=== PATIENT | female | born 1935 | race Caucasian/White ===

== ENCOUNTER 2019-03-10 17:48 | Emergency (ER) | payer MEDICARE, OTHER ==
[~2019-03-10] VITALS: Ht 167.6 cm; Wt 61.7 kg
--- NOTE | 2019-03-10 19:58 | PHYS DOC ---
Past Medical History Past Medical History: Other Additional Past Medical Histor: prolapsed uterus (KATHI OLIVER APRN) Past Surgical History: Other Additional Past Surgical Histo: thyroidectomy (KATHI OLIVER APRN) Alcohol Use: None Drug Use: None (KATHI OLIVER APRN) Adult General Chief Complaint Chief Complaint: VAGINAL BLEEDING HPI HPI Patient is a 83 year old [female] who presents with [3 day history of vaginal bleeding. Patient reports she has bleeding once or twice a day, has not had any discomfort. States she has noticed something different with her vagina and a firm area for the past month or two. Reports she thinks the firm area was growing but thinks it stopped. Denies fever, denies dysuria, denies nausea, vomiting, Denies recent weight loss. States she has had a history of a prolaped uterus many years ago, but never had it evaluated and has never had any issues since that time. Reports she was mostly concerned over the bleeding, denies blood clots, denies dizziness. ] (KATHI OLIVER APRN) Review of Systems Review of Systems Constitutional: Denies fever or chills [] Eyes: Denies change in visual acuity, redness, or eye pain [] HENT: Denies nasal congestion or sore throat [] Respiratory: Denies cough or shortness of breath [] Cardiovascular: No additional information not addressed in HPI [] GI: Denies abdominal pain, nausea, vomiting, bloody stools or diarrhea, does report vaginal bleeding [] : Denies dysuria or hematuria [] Musculoskeletal: Denies back pain or joint pain [] Integument: Denies rash or skin lesions [] Neurologic: Denies headache, focal weakness or sensory changes [] Endocrine: Denies polyuria or polydipsia [] All other systems were reviewed and found to be within normal limits, except as documented in this note. (KATHI OLIVER APRN) Current Medications Current Medications Current Medications Medications (Trade) Dose Ordered Sig/Leo Start Time Stop Time Status Last Admin Dose Admin Info (CONTRAST GIVEN -- Rx MONITORING) 1 each PRN DAILY PRN 03/10/19 20:30 03/10/19 22:31 DC Iohexol (Omnipaque 300 Mg/ml) 100 ml 1X ONCE 03/10/19 20:30 03/10/19 20:31 DC (DICK GRIGSBY DO) Allergies Allergies Allergies Coded Allergies Type Severity Reaction Last Updated Verified No Known Drug Allergies 03/10/19 No (DICK GRIGSBY DO) Physical Exam Physical Exam Constitutional: Well developed, well nourished, no acute distress, non-toxic appearance. [] HENT: Normocephalic, atraumatic, bilateral external ears normal, oropharynx moist, no oral exudates, nose normal. [] Eyes: PERRLA, EOMI, conjunctiva normal, no discharge. [] Neck: Normal range of motion, no tenderness, supple, no stridor. [] Cardiovascular:Heart rate regular rhythm, no murmur [] Lungs & Thorax: Bilateral breath sounds clear to auscultation [] Abdomen: Bowel sounds normal, soft, no tenderness, no masses, no pulsatile masses. [] Skin: Warm, dry, no erythema, no rash. [] Back: No tenderness, no CVA tenderness. [] Extremities: No tenderness, no cyanosis, no clubbing, ROM intact, no edema. [] Neurologic: Alert and oriented X 3, normal motor function, normal sensory function, no focal deficits noted. [] Psychologic: Affect normal, judgement normal, mood normal. [] : Pelvic exam, imaging assistant with RN in room. Noted small amount of whitish vaginal fluid in vaginal canal, no lesion noted to cervix, no lesions noted to vaginal canal. At distal, posterior labia, noted approximately 1 cm thick, 2 cm diameter growth anterior to rectum, growth extends superiorly approximately 2.5 cm into posterior vaginal canal. Lesion noted medially, with minimal erythema, no active bleeding noted at this time. (KATHI OLIVER APRN) Current Patient Data Vital Signs Vital Signs Date Time Temp Pulse Resp B/P (MAP) Pulse Ox O2 Delivery O2 Flow Rate FiO2 03/10/19 22:10 75 22 147/73 (97) 97 Room Air 03/10/19 17:48 98.1 98.1 (DICK GRIGSBY DO) Lab Values Laboratory Tests Test 03/10/19 19:15 03/10/19 19:35 Urine Collection Type Unknown Urine Color Yellow Urine Clarity Clear Urine pH 6.0 Urine Specific [place] >=1.030 Urine Protein Negative mg/dL (NEG-TRACE) Urine Glucose (UA) Negative mg/dL (NEG) Urine Ketones (Stick) Negative mg/dL (NEG) Urine Blood Negative (NEG) Urine Nitrite Negative (NEG) Urine Bilirubin Negative (NEG) Urine Urobilinogen Dipstick 1.0 mg/dL (0.2 mg/dL) Urine Leukocyte Esterase Moderate (NEG) Urine RBC 0 /HPF (0-2) Urine WBC 5-10 /HPF (0-4) Urine Squamous Epithelial Cells Few /LPF Urine Bacteria Few /HPF (0-FEW) Urine Mucus Mod /LPF White Blood Count 8.5 x10^3/uL (4.0-11.0) Red Blood Count 4.22 x10^6/uL (3.50-5.40) Hemoglobin 12.6 g/dL (12.0-15.5) Hematocrit 36.8 % (36.0-47.0) Mean Corpuscular Volume 87 fL (79-100) Mean Corpuscular Hemoglobin 30 pg (25-35) Mean Corpuscular Hemoglobin Concent 34 g/dL (31-37) Red Cell Distribution Width 14.8 % (11.5-14.5) H Platelet Count 299 x10^3/uL (140-400) Neutrophils (%) (Auto) 74 % (31-73) H Lymphocytes (%) (Auto) 15 % (24-48) L Monocytes (%) (Auto) 9 % (0-9) Eosinophils (%) (Auto) 1 % (0-3) Basophils (%) (Auto) 1 % (0-3) Neutrophils # (Auto) 6.3 x10^3uL (1.8-7.7) Lymphocytes # (Auto) 1.3 x10^3/uL (1.0-4.8) Monocytes # (Auto) 0.7 x10^3/uL (0.0-1.1) Eosinophils # (Auto) 0.1 x10^3/uL (0.0-0.7) Basophils # (Auto) 0.1 x10^3/uL (0.0-0.2) Sodium Level 142 mmol/L (136-145) Potassium Level 4.1 mmol/L (3.5-5.1) Chloride Level 104 mmol/L (98-107) Carbon Dioxide Level 26 mmol/L (21-32) Anion Gap 12 (6-14) Blood Urea Nitrogen 28 mg/dL (7-20) H Creatinine 0.9 mg/dL (0.6-1.0) Estimated GFR (Cockcroft-Gault) 59.9 Glucose Level 118 mg/dL (70-99) H Calcium Level 9.7 mg/dL (8.5-10.1) Laboratory Tests 03/10/19 19:35 Laboratory Tests 03/10/19 19:35 (DICK GRIGSBY DO) Lab Values Laboratory Tests Test 03/10/19 19:15 03/10/19 19:35 Urine Collection Type Unknown Urine Color Yellow Urine Clarity Clear Urine pH 6.0 Urine Specific [place] >=1.030 Urine Protein Negative mg/dL (NEG-TRACE) Urine Glucose (UA) Negative mg/dL (NEG) Urine Ketones (Stick) Negative mg/dL (NEG) Urine Blood Negative (NEG) Urine Nitrite Negative (NEG) Urine Bilirubin Negative (NEG) Urine Urobilinogen Dipstick 1.0 mg/dL (0.2 mg/dL) Urine Leukocyte Esterase Moderate (NEG) Urine RBC 0 /HPF (0-2) Urine WBC 5-10 /HPF (0-4) Urine Squamous Epithelial Cells Few /LPF Urine Bacteria Few /HPF (0-FEW) Urine Mucus Mod /LPF White Blood Count 8.5 x10^3/uL (4.0-11.0) Red Blood Count 4.22 x10^6/uL (3.50-5.40) Hemoglobin 12.6 g/dL (12.0-15.5) Hematocrit 36.8 % (36.0-47.0) Mean Corpuscular Volume 87 fL (79-100) Mean Corpuscular Hemoglobin 30 pg (25-35) Mean Corpuscular Hemoglobin Concent 34 g/dL (31-37) Red Cell Distribution Width 14.8 % (11.5-14.5) H Platelet Count 299 x10^3/uL (140-400) Neutrophils (%) (Auto) 74 % (31-73) H Lymphocytes (%) (Auto) 15 % (24-48) L Monocytes (%) (Auto) 9 % (0-9) Eosinophils (%) (Auto) 1 % (0-3) Basophils (%) (Auto) 1 % (0-3) Neutrophils # (Auto) 6.3 x10^3uL (1.8-7.7) Lymphocytes # (Auto) 1.3 x10^3/uL (1.0-4.8) Monocytes # (Auto) 0.7 x10^3/uL (0.0-1.1) Eosinophils # (Auto) 0.1 x10^3/uL (0.0-0.7) Basophils # (Auto) 0.1 x10^3/uL (0.0-0.2) Sodium Level 142 mmol/L (136-145) Potassium Level 4.1 mmol/L (3.5-5.1) Chloride Level 104 mmol/L (98-107) Carbon Dioxide Level 26 mmol/L (21-32) Anion Gap 12 (6-14) Blood Urea Nitrogen 28 mg/dL (7-20) H Creatinine 0.9 mg/dL (0.6-1.0) Estimated GFR (Cockcroft-Gault) 59.9 Glucose Level 118 mg/dL (70-99) H Calcium Level 9.7 mg/dL (8.5-10.1) Laboratory Tests 03/10/19 19:35 Laboratory Tests 03/10/19 19:35 (KATHI OLIVER APRN) EKG EKG [] (KATHI OLIVER APRN) Radiology/Procedures Radiology/Procedures []. There is degenerative and hypertrophic change at the pubic symphysis which could be palpable. There is a subcutaneous density which is nonspecific at the posterior labia IMPRESSION: 1. Hypertrophic change at the pubic symphysis. 2. Small nonspecific subcutaneous density at the posterior labia measuring 3.2 x 1.5 cm. 3. Normal appendix. 4. Spondylolisthesis at L5-S1 with degenerative change in lumbar spine. 5. Moderate stool in the colon. 6. Dilated renal collecting system of the left kidney or peripelvic renal cysts on the left. 7. Marked arthritis of the hips especially on the right. Electronically signed by: Chi Nava MD (03/10/2019 8:58 PM) [facility] DICTATED and SIGNED BY: CHI NAVA MD DATE: 03/10/192057 (KATHI OLIVER APRN) Course & Med Decision Making Course & Med Decision Making Pertinent Labs and Imaging studies reviewed. (See chart for details) [Discussed findings with patient, with no remarkable lab findings, imaging also identifies the mass we found on exam. Discussed no need for admission, but do recommend follow up with Strategy Consultant for evaluation and probable biopsy Discussed observing for bleeding, use of pads to contain bleeding, and may return to ER if bleeding continues and does not stop Discussed avoiding wiping heavily Discussed increasing fluid intake and stool softeners to reduce constipation noted in stool] (KATHI OLIVER APRN) Dragon Disclaimer Dragon Disclaimer This electronic medical record was generated, in whole or in part, using a voice recognition dictation system. (KATHI OLIVER APRN) Departure Departure Impression: Primary Impression: Labial lesion Additional Impressions: Bleeding Urinary tract infection Disposition: HOME, SELF-CARE Condition: GOOD Referrals: JONATHON KWOK MD (PCP) WYATT FINK MD Patient Instructions: Postmenopausal Bleeding Additional Instructions: As we discussed, her blood work all looks good today. You did not appear to have lost a large amount of blood based on her blood tests As we talked about, he do have a growth on your vagina. He need to follow-up with the practice performance manager to have this evaluated, and determine if they want to do a biopsy on this. Follow-up with Dr. Villanueva whose information is provided in your discharge paperwork. Try to wear a pad to catch any bleeding which may occur, if you have a large amount of bleeding that does not stop, please come back to the emergency room to be evaluated and have the bleeding stopped. Scripts Ciprofloxacin Hcl (CIPRO) 500 Mg Tablet 1 TAB PO BID, #6 TAB Prov: KATHI OLIVER APRN 03/10/19 Attending Signature Attending Signature I have reviewed the PA/WOOD BARKER's note and plan of care. I was available for consultation as needed during the patient's visit in the emergency department. I agree with the clinical impression, plan, and disposition. (DICK GRIGSBY DO) Problem Qualifiers Additional Impressions: Urinary tract infection Urinary tract infection type: acute cystitis Hematuria presence: without hematuria Qualified Codes: N30.00 - Acute cystitis without hematuria KATHI OLIVER APRN Mar 10, 2019 19:58 DICK GRIGSBY DO Mar 12, 2019 20:33
[2019-03-10 20:08] LABS: BASO # 0.1 x10^3/uL (0.0-0.2); BASO % 1 % (0-3); EOS # 0.1 x10^3/uL (0.0-0.7); EOS % 1 % (0-3); HEMATOCRIT 36.8 % (36.0-47.0); HEMOGLOBIN 12.6 g/dL (12.0-15.5); LYMPH # 1.3 x10^3/uL (1.0-4.8); LYMPH % 15 % (24-48); MEAN CORPUSCULAR HEMOGLOBIN 30 pg (25-35); MEAN CORPUSCULAR HGB CONC 34 g/dL (31-37); MEAN CORPUSCULAR VOLUME 87 fL (79-100); MONO # 0.7 x10^3/uL (0.0-1.1); MONO % 9 % (0-9); NEUT # 6.3 x10^3uL (1.8-7.7); NEUT % 74 % (31-73); PLATELET COUNT 299 x10^3/uL (140-400); RED BLOOD COUNT 4.22 x10^6/uL (3.50-5.40); RED CELL DISTRIBUTION WIDTH 14.8 % (11.5-14.5); WHITE BLOOD COUNT 8.5 x10^3/uL (4.0-11.0)
[2019-03-10 20:12] LABS: BILIRUBIN,URINE NEGATIVE (NEG); CLARITY,URINE CLEAR; COLOR,URINE YELLOW; NITRITE,URINE NEGATIVE (NEG); PROTEIN,URINE NEGATIVE (NEG-TRACE)
[2019-03-10 20:23] LABS: BACTERIA,URINE FEW /HPF (0-FEW); RBC,URINE 0 /HPF (0-2); SQUAMOUS EPITHELIAL CELL,UR FEW /LPF
[2019-03-10 20:25] LABS: CALCIUM 9.7 mg/dL (8.5-10.1); CREATININE 0.9 mg/dL (0.6-1.0); GFR 59.9; POTASSIUM 4.1 mmol/L (3.5-5.1)
[2019-03-10] MEDS ORDERED: CONTRAST GIVEN. MC PRN (20:30)
[2019-03-10] MEDS ORDERED: IOHEXOL 300 MG/ML 100ML VIAL. IV ONE (20:30)
--- NOTE | 2019-03-10 21:01 | RAD ---
CT abdomen and pelvis with contrast. HISTORY: Labial mass, vaginal bleeding CT scan the abdomen pelvis was done using 60 mL Omnipaque 300 contrast. Lung bases are clear. There is no effusion. There is scoliosis and degenerative change in the lumbar spine. There is spondylolisthesis at L5-S1. A liver lesion is not identified. There is no calcified gallstone. Spleen and adrenal glands are normal. Pancreas is normal. There are small renal cysts. There is dilated intrarenal collecting system of the left kidney possibly a mild UPJ obstruction or peripelvic renal cysts. The left ureter is nondilated. Bowel pattern is normal. There is increased stool in the colon. Uterus and ovaries are normal. There is no bladder lesion noted. There is marked arthritis in the right hip with moderate arthritis in the left hip. There is loss of the joint space of the right hip. Appendix is normal. There is degenerative and hypertrophic change at the pubic symphysis which could be palpable. There is a subcutaneous density which is nonspecific at the posterior labia IMPRESSION: 1. Hypertrophic change at the pubic symphysis. 2. Small nonspecific subcutaneous density at the posterior labia measuring 3.2 x 1.5 cm. 3. Normal appendix. 4. Spondylolisthesis at L5-S1 with degenerative change in lumbar spine. 5. Moderate stool in the colon. 6. Dilated renal collecting system of the left kidney or peripelvic renal cysts on the left. 7. Marked arthritis of the hips especially on the right. Electronically signed by: Chi Nava MD (03/10/2019 8:58 PM) [facility]
[2019-03-10] MEDS ORDERED: CIPR500T94 PO (21:22)
[2019-03-10 22:10] VITALS: BP 147/73
== END 2019-03-10 22:15 | disposition home or self-care (01) ==
LOC: ER 17:48
DX: N30.00 Acute cystitis without hematuria (principal); N90.89 Other specified noninflammatory disorders of vulva and perineum; N93.9 Abnormal uterine and vaginal bleeding, unspecified; Z98.890 Other specified postprocedural states
CPT/HCPCS: 36415; 74177; 80048; 81001; 85025; 87086; 99285-25

== ENCOUNTER 2019-06-17 09:10 | Outpatient (CLI) | payer MEDICARE, OTHER ==
[~2019-06-17] VITALS: Ht 170.2 cm; Wt 60.3 kg
[2019-06-17 09:07] VITALS: BP 153/70
[~2019-06-17 09:10] MED LIST: CIPR500T94 PO; OXYC1TAB15 PO
[2019-06-17] MEDS ORDERED: LIDOCAINE 1%/EPI 1:100,000 20 ML VIAL. ONE (09:42)
[2019-06-17] MEDS ORDERED: fentaNYL PF VIAL 100 MCG/2 ML VIAL ONE (10:08)
[2019-06-17] MEDS ORDERED: MIDAZOLAM HCL/PF 2 MG/2 ML VIAL. ONE (10:08)
[2019-06-17] MEDS ORDERED: LIDOCAINE 1%/EPI 1:100,000 20 ML VIAL. SQ ONE (10:45)
[2019-06-17] MEDS ORDERED: MIDAZOLAM HCL/PF 2 MG/2 ML VIAL. IV ONE (10:45)
[2019-06-17] MEDS ORDERED: fentaNYL PF VIAL 100 MCG/2 ML VIAL IV ONE (10:45)
[2019-06-17 10:55] VITALS: BP 119/49
[2019-06-17 11:00] VITALS: BP 122/52
[2019-06-17 11:15] VITALS: BP 105/49
[2019-06-17 11:30] VITALS: BP 105/51
[2019-06-17 11:50] VITALS: BP 121/62
--- NOTE | 2019-06-17 12:10 | NUR ---
pt discharged to home with family. PIV thang'd. Pt ambulated and tolerated PO.
--- NOTE | 2019-06-17 14:23 | RAD ---
Procedure: Ultrasound and fluoroscopically guided placement of right internal jugular power port.. 06/17/2019 12:18 PM Clinical Indication: Chemotherapy Sedation: Conscious sedation was administered for 50 minutes. The patient was monitored by a qualified independent observer throughout the time of sedation. Please refer to the medical record for exact doses of medications utilized to achieve moderate sedation. Fluoroscopy time: 1.4 minutes Dose area product: 1 Gycm2 Consent: The procedure was explained in its entirety to the patient or the patients designated automotive leasing sales representative by a member of the treatment team, including a discussion of the risks, benefits and commonly accepted alternatives to the procedure, as well as the expected consequences of no therapy whatsoever. Discussion of the risks included, but was not limited to, those that are most frequent and those that are rare but possibly severe or life-threatening, as well as the possibility of unforeseen complications. Technique and Findings: All elements of maximal sterile barrier technique including the use of a cap, mask, sterile gown, sterile gloves, large sterile sheet, appropriate hand hygiene, and 2% chlorhexidine for cutaneous antisepsis (or acceptable alternative antiseptic per current guidelines) were followed for this procedure. Following informed consent, and a timeout procedure, the patient was prepped and draped in the usual sterile fashion. Ultrasound interrogation of the right neck revealed patency and compressibility of the right internal jugular vein. A 21-gauge micropuncture was then used to gain access to this vein under ultrasound guidance. A hard copy ultrasound image was recorded. The needle was exchanged over a wire for a sheath. A 1 inch incision was made several centimeters inferior to the venotomy site. A catheter was tunneled from this site dermatotomy site in the neck. Catheter was advanced through peel-away sheath such that its tip was in the proximal right atrium with the patient supine. The catheter was trimmed to length and connected to the port reservoir. The port was found to flush and aspirate normally. The wound was closed in layers using 4-0 Vicryl suture. Sterile dressings were applied. Impression: Successful ultrasound and fluoroscopically guided placement of a right internal jugular PowerPort
== END 2019-06-17 12:11 | disposition home or self-care (01) ==
LOC: INTRAD 09:10
PROVIDERS: ATTEND Internal Medicine Hematology & Oncology
DX: Z45.2 Encounter for adjustment and management of vascular access device (principal); C51.9 Malignant neoplasm of vulva, unspecified
CPT/HCPCS: 36561; 76937; 77001; 99152; 99153; C1751; C1892; C1894; J0690; J2250; J3010; J3490

== ENCOUNTER → 2019-09-10 | Outpatient (CLI) | payer MEDICARE, OTHER ==
[~2019-09-10] MED LIST changes: +FERR-36 PO; +HYDR-2761 PO
--- NOTE | 2019-09-10 12:26 | RAD ---
AP VIEW OF THE PELVIS AND TWO-VIEW STUDY LEFT HIP Clinical indications: Left hip pain after recent fall. FINDINGS: There is a subcapital left femoral neck fracture with mild superior displacement of the neck with respect to the head. No dislocation is evident. No lytic process is evident. There is severe degenerative osteoarthritis with loss of joint space of the right hip joint. No diastases of the symphysis pubis or either SI joint is seen. IMPRESSION: Acute subcapital left femoral neck fracture. Note-this finding was discussed with Dr. Timmy Desai at 12:23 PM on September 10, 2019. 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 Electronically signed by: Rafa Alfaro MD (09/10/2019 12:24 PM) [facility]
== END | disposition home or self-care (01) ==
LOC: RAD 11:35
PROVIDERS: ATTEND Radiology Radiation Oncology
DX: S72.012A Unspecified intracapsular fracture of left femur, initial encounter for closed fracture (principal); M16.11 Unilateral primary osteoarthritis, right hip; W19.XXXA Unspecified fall, initial encounter; Y93.89 Activity, other specified; Y92.89 Other specified places as the place of occurrence of the external cause; Y99.8 Other external cause status
CPT/HCPCS: 73502

== ENCOUNTER → 2019-12-16 | Outpatient (CLI) | payer MEDICARE, OTHER ==
[2019-09-18 11:00] VITALS: BP 119/55
[~2019-12-16] MED LIST changes: +CHOL500051 PO; +IOHEXOL 240 MG/ML 50ML VIAL. PO ONE; +IOHEXOL 300 MG/ML 100ML VIAL. IV ONE
[2019-12-16 09:12] LABS: CREATININE 0.8 mg/dL (0.6-1.0); GFR 68.5
--- NOTE | 2019-12-16 11:24 | RAD ---
PQRS Compliance Statement: One or more of the following individualized dose reduction techniques were utilized for this examination: 1. Automated exposure control 2. Adjustment of the mA and/or kV according to patient size 3. Use of iterative reconstruction technique CT CHEST ABD PELVIS W/CONTRAST Clinical Indication: Vulvar cancer. Comparison: FDG PET/CT skull base to upper thighs, May 23, 2019. Technique: Helical CT imaging of the chest, abdomen and pelvis is performed after 75 cc of Omnipaque 300 IV contrast. Oral contrast also administered. Findings: Right Port-A-Cath, tip in right atrium. Mildly enlarged mediastinal lymph nodes are stable. Vessels are stable. Coronary artery disease. Mitral annular calcification. Cardiac size normal, no pericardial effusion. Small hiatal hernia. The central airways are patent. There is a new soft tissue density nodule in the medial right lower lobe measuring 2.1 x 1.6 cm. No other pulmonary nodule is seen. There is no pleural abnormality. The liver, gallbladder, spleen, pancreas, adrenal glands, and abdominal aorta caliber are normal. Kidneys enhance symmetrically, no hydronephrosis is seen. Stomach unremarkable. Oral contrast reaches the colon indicating there is no small bowel obstruction. There is moderate colon stool volume. No colon wall thickening is identified. Subcentimeter retroperitoneal lymph nodes. No adenopathy. There is beam hardening artifact from left hip arthroplasty limiting evaluation of the pelvis. Urinary bladder is decompressed. Uterus appears stable. There is no pelvic free fluid. The lower pelvis and vulvar region is not imaged. Bilateral inguinal adenopathy is no longer seen. Bilateral L5 spondylolysis. Grade 1 anterolisthesis of L5 on S1. Degenerative spondylosis of the lumbar spine. There is right convexity thoracolumbar scoliosis. There is severe arthropathy of the right hip. Diffuse demineralization. IMPRESSION: 1. The lower pelvis and vulvar region is not imaged. 2. Bilateral inguinal adenopathy has resolved. 3. There is a new soft tissue density nodule in the right lower lobe suspicious for metastasis. Consider further evaluation with FDG PET/CT. 4. Mildly enlarged mediastinal lymph nodes are stable. These lymph nodes had low level FDG uptake equivalent to blood pool on prior study and may be reactive or incidental. Electronically signed by: Samuel Acosta MD (12/16/2019 11:21 AM) [id number]
== END | disposition home or self-care (01) ==
LOC: CT 09:38
PROVIDERS: ATTEND Internal Medicine Hematology & Oncology
DX: C51.9 Malignant neoplasm of vulva, unspecified (principal); I25.10 Atherosclerotic heart disease of native coronary artery without angina pectoris; K44.9 Diaphragmatic hernia without obstruction or gangrene; I34.8 Other nonrheumatic mitral valve disorders; R59.0 Localized enlarged lymph nodes; M47.816 Spondylosis without myelopathy or radiculopathy, lumbar region; M43.17 Spondylolisthesis, lumbosacral region; M16.11 Unilateral primary osteoarthritis, right hip
CPT/HCPCS: 36415; 71260; 74177; 82565; Q9966; Q9967

== ENCOUNTER → 2019-12-19 | Outpatient (CLI) | payer MEDICARE, OTHER ==
[2019-09-18 11:00] VITALS: BP 119/55
[~2019-12-19] MED LIST changes: -IOHEXOL 240 MG/ML 50ML VIAL. PO ONE; -IOHEXOL 300 MG/ML 100ML VIAL. IV ONE
--- NOTE | 2019-12-19 17:31 | RAD ---
RESULT: EXAMINATION: PET W CT SKULL TO MIDTHIGH HISTORY: Vulvar carcinoma restaging. Right lung lesion is new. COMPARISON/CORRELATION: 05/23/2019 PET/CT exam, 12/16/2019 CT chest abdomen pelvis with contrast exam FINDINGS: Net dose 14.7 mCi F-18 FDG was administered intravenously for purposes of PET/CT exam. Blood glucose level at the time of radiotracer administration was 120 mg/dL. Imaging was performed from the skull base to the proximal thighs. Hepatic reference uptake is SUV max of 2.1 . A right medial basilar costophrenic sulcus is 1.9 cm in diameter nodule has SUV max of 5. No abnormal uptake of radiotracer involving the thoracic lymph nodes. No suspicious infiltrates since the recent prior CT exam. Incidental note is made of retained contrast in distal colon. No radiopaque collecting system calculi. Uptake of radiotracer involving the abdomen is unremarkable. On the right lower pelvic sidewall, a 2.2 cm x 1.4 cm x 3 cm in longitudinal enlarged pelvic lymph node with SUV max of 6.6. There is no abnormal radiotracer uptake involving the pelvis or perineum otherwise seen. Severe right hip joint degenerative remodeling is present. Left hip joint prosthesis is present. IMPRESSION: Right medial basilar mass with moderately intense uptake compatible with active metastatic disease since the prior PET/CT exam of 05/23/2019. Intense uptake involving a new right pelvic sidewall lymph node compatible with active lymphadenopathy since the prior PET/CT exam of 05/23/2019. PQRS Compliance Statement: One or more of the following individualized dose reduction techniques were utilized for this examination: 1. Automated exposure control 2. Adjustment of the mA and/or kV according to patient size 3. Use of iterative reconstruction technique Electronically signed by: Wally Martin MD (12/19/2019 5:28 PM) [facility]
== END ==
LOC: PETSC 13:53
PROVIDERS: ATTEND Internal Medicine Hematology & Oncology
DX: C51.9 Malignant neoplasm of vulva, unspecified (principal); R91.1 Solitary pulmonary nodule; M16.11 Unilateral primary osteoarthritis, right hip
CPT/HCPCS: 78815; A9552

== ENCOUNTER → 2020-03-09 | Outpatient (CLI) | payer MEDICARE, OTHER ==
[2020-03-05 09:51] VITALS: BP 124/62
[2020-03-09 10:13] LABS: BASO % 1 % (0-3); EOS % 1 % (0-3); HEMATOCRIT 29.8 % (36.0-47.0); HEMOGLOBIN 10.3 g/dL (12.0-15.5); LYMPH # 0.4 x10^3/uL (1.0-4.8); LYMPH % 25 % (24-48); MEAN CORPUSCULAR HEMOGLOBIN 32 pg (25-35); MEAN CORPUSCULAR HGB CONC 35 g/dL (31-37); MEAN CORPUSCULAR VOLUME 92 fL (79-100); MONO # 0.2 x10^3/uL (0.0-1.1); MONO % 11 % (0-9); NEUT # 0.9 x10^3/uL (1.8-7.7); NEUT % 63 % (31-73); PLATELET COUNT 170 x10^3/uL (140-400); RED BLOOD COUNT 3.22 x10^6/uL (3.50-5.40)
[2020-03-09 10:15] LABS: CALCIUM 8.6 mg/dL (8.5-10.1); CREATININE 0.8 mg/dL (0.6-1.0); GFR 68.5; POTASSIUM 4.2 mmol/L (3.5-5.1)
[2020-03-09 10:24] LABS: ALBUMIN 3.3 g/dL (3.4-5.0); DIRECT BILIRUBIN 0.2 mg/dL (0.0-0.2); TOTAL BILIRUBIN 0.6 mg/dL (0.2-1.0); TOTAL PROTEIN 6.5 g/dL (6.4-8.2); WHITE BLOOD COUNT 1.4 x10^3/uL (4.0-11.0)
== END | disposition home or self-care (01) ==
LOC: SPEC 09:40
PROVIDERS: ATTEND Physician Assistant
DX: C51.9 Malignant neoplasm of vulva, unspecified (principal)
CPT/HCPCS: 36415; 80048; 80076; 83615; 85025

== ENCOUNTER → 2020-03-11 | Outpatient (CLI) | payer MEDICARE, OTHER ==
[2020-03-05 09:51] VITALS: BP 124/62
[2020-03-11 08:52] LABS: BASO % 0 % (0-3); EOS % 0 % (0-3); HEMATOCRIT 30.5 % (36.0-47.0); HEMOGLOBIN 10.5 g/dL (12.0-15.5); LYMPH # 0.6 x10^3/uL (1.0-4.8); LYMPH % 9 % (24-48); MEAN CORPUSCULAR HEMOGLOBIN 32 pg (25-35); MEAN CORPUSCULAR HGB CONC 34 g/dL (31-37); MEAN CORPUSCULAR VOLUME 94 fL (79-100); MONO # 0.4 x10^3/uL (0.0-1.1); MONO % 6 % (0-9); NEUT # 5.6 x10^3/uL (1.8-7.7); NEUT % 84 % (31-73); PLATELET COUNT 185 x10^3/uL (140-400); RED BLOOD COUNT 3.24 x10^6/uL (3.50-5.40); RED CELL DISTRIBUTION WIDTH 19.8 % (11.5-14.5); WHITE BLOOD COUNT 6.6 x10^3/uL (4.0-11.0)
== END | disposition home or self-care (01) ==
LOC: ONCLAB 08:12
PROVIDERS: ATTEND Physician Assistant
DX: C51.9 Malignant neoplasm of vulva, unspecified (principal)
CPT/HCPCS: 36415; 85025

== ENCOUNTER → 2020-03-15 | Outpatient (CLI) | payer MEDICARE, OTHER ==
[2020-03-05 09:51] VITALS: BP 124/62
--- NOTE | 2020-03-15 10:40 | RAD ---
Right lower extremity venous doppler ultrasound History: Right leg pain Comparison: None Findings: Multiple grayscale, color, and duplex spectral analysis sonographic images were acquired of the right lower extremity veins to evaluate for the presence of DVT. There is nonocclusive abnormal echogenicity in the right popliteal vein, also occlusive echogenicity in one of the paired posterior tibial veins. Remainder of the interrogated right lower extremity veins are patent with normal phasicity and color-flow. Impression: 1. There is nonocclusive deep venous thrombus in the right popliteal vein, also occlusive thrombus in one of the posterior tibial veins. Findings were also called to voicemail for the nurse at the doctor's office 10:36 AM 03/15/2020. Critical results were relayed by the technologist to the nurse in the ordering doctor's office at conclusion of exam on 03/15/2020. Electronically signed by: Jeff Love MD (03/15/2020 10:37 AM) [id number]
== END | disposition home or self-care (01) ==
LOC: US 10:00
PROVIDERS: ATTEND Physician Assistant
DX: I82.431 Acute embolism and thrombosis of right popliteal vein (principal); C51.9 Malignant neoplasm of vulva, unspecified
CPT/HCPCS: 93971

== ENCOUNTER → 2020-03-15 | Outpatient (CLI) | payer MEDICARE, OTHER ==
[2020-03-05 09:51] VITALS: BP 124/62
[2020-03-15 09:19] LABS: CALCIUM 8.6 mg/dL (8.5-10.1); CREATININE 0.8 mg/dL (0.6-1.0); GFR 68.5; POTASSIUM 4.1 mmol/L (3.5-5.1)
[2020-03-15 09:27] LABS: BASO % 1 % (0-3); EOS % 1 % (0-3); HEMOGLOBIN 10.7 g/dL (12.0-15.5); LYMPH # 0.4 x10^3/uL (1.0-4.8); LYMPH % 37 % (24-48); MEAN CORPUSCULAR HEMOGLOBIN 32 pg (25-35); MEAN CORPUSCULAR HGB CONC 34 g/dL (31-37); MEAN CORPUSCULAR VOLUME 94 fL (79-100); MONO # 0.2 x10^3/uL (0.0-1.1); MONO % 16 % (0-9); NEUT # 0.5 x10^3/uL (1.8-7.7); NEUT % 46 % (31-73); PLATELET COUNT 205 x10^3/uL (140-400); RED CELL DISTRIBUTION WIDTH 20.6 % (11.5-14.5)
[2020-03-15 09:29] LABS: WHITE BLOOD COUNT 1.1 x10^3/uL (4.0-11.0)
[2020-03-15 10:05] LABS: % EOS 1 % (0-5); % LYMPHS 38 % (24-48); % MONOS 19 % (0-10); % SEGS 42 % (35-66); PLT ESTIMATE ADEQUATE (ADEQUATE)
== END | disposition home or self-care (01) ==
LOC: ONCLAB 08:42
PROVIDERS: ATTEND Physician Assistant
DX: C77.4 Secondary and unspecified malignant neoplasm of inguinal and lower limb lymph nodes (principal)
CPT/HCPCS: 36415; 80048; 85007; 85025

== ENCOUNTER → 2020-03-18 | Outpatient (CLI) | payer MEDICARE, OTHER ==
[2020-03-05 09:51] VITALS: BP 124/62
[~2020-03-18] MED LIST changes: +IBUP-1027 PO; +vitamin d PO
[2020-03-18 08:54] LABS: BASO % 1 % (0-3); EOS % 0 % (0-3); HEMATOCRIT 31.2 % (36.0-47.0); HEMOGLOBIN 10.6 g/dL (12.0-15.5); LYMPH # 0.6 x10^3/uL (1.0-4.8); LYMPH % 13 % (24-48); MEAN CORPUSCULAR HEMOGLOBIN 32 pg (25-35); MEAN CORPUSCULAR HGB CONC 34 g/dL (31-37); MEAN CORPUSCULAR VOLUME 96 fL (79-100); MONO # 0.5 x10^3/uL (0.0-1.1); MONO % 12 % (0-9); NEUT # 3.3 x10^3/uL (1.8-7.7); NEUT % 74 % (31-73); PLATELET COUNT 257 x10^3/uL (140-400); RED BLOOD COUNT 3.26 x10^6/uL (3.50-5.40); RED CELL DISTRIBUTION WIDTH 22.6 % (11.5-14.5); WHITE BLOOD COUNT 4.4 x10^3/uL (4.0-11.0)
[2020-03-18 09:07] LABS: CALCIUM 8.8 mg/dL (8.5-10.1); CREATININE 0.9 mg/dL (0.6-1.0); GFR 59.8; POTASSIUM 3.9 mmol/L (3.5-5.1)
== END | disposition home or self-care (01) ==
LOC: ONCLAB 08:35
PROVIDERS: ATTEND Internal Medicine Hematology & Oncology
DX: C51.9 Malignant neoplasm of vulva, unspecified (principal)
CPT/HCPCS: 36415; 80048; 83615; 85025

== ENCOUNTER → 2020-03-25 | Outpatient (CLI) | payer MEDICARE, OTHER ==
[2020-03-05 09:51] VITALS: BP 124/62
[2020-03-25 08:30] LABS: BASO # 0.1 x10^3/uL (0.0-0.2); BASO % 1 % (0-3); EOS % 0 % (0-3); HEMATOCRIT 33.7 % (36.0-47.0); HEMOGLOBIN 11.1 g/dL (12.0-15.5); LYMPH % 9 % (24-48); MEAN CORPUSCULAR HEMOGLOBIN 32 pg (25-35); MEAN CORPUSCULAR HGB CONC 33 g/dL (31-37); MEAN CORPUSCULAR VOLUME 98 fL (79-100); MONO # 0.9 x10^3/uL (0.0-1.1); MONO % 8 % (0-9); NEUT # 10.1 x10^3/uL (1.8-7.7); NEUT % 83 % (31-73); PLATELET COUNT 242 x10^3/uL (140-400); RED BLOOD COUNT 3.43 x10^6/uL (3.50-5.40); RED CELL DISTRIBUTION WIDTH 22.7 % (11.5-14.5); WHITE BLOOD COUNT 12.1 x10^3/uL (4.0-11.0)
[2020-03-25 08:37] LABS: CALCIUM 9.1 mg/dL (8.5-10.1)
== END ==
LOC: ONCLAB 08:06
PROVIDERS: ATTEND Physician Assistant
DX: C51.9 Malignant neoplasm of vulva, unspecified (principal)
CPT/HCPCS: 36415; 80048; 85025

== ENCOUNTER → 2020-04-01 | Outpatient (CLI) | payer MEDICARE, OTHER ==
[2020-03-05 09:51] VITALS: BP 124/62
[2020-04-01 08:44] LABS: BASO % 0 % (0-3); EOS % 0 % (0-3); HEMATOCRIT 29.8 % (36.0-47.0); LYMPH # 0.6 x10^3/uL (1.0-4.8); LYMPH % 5 % (24-48); MEAN CORPUSCULAR HEMOGLOBIN 33 pg (25-35); MEAN CORPUSCULAR HGB CONC 34 g/dL (31-37); MEAN CORPUSCULAR VOLUME 99 fL (79-100); MONO # 0.7 x10^3/uL (0.0-1.1); MONO % 5 % (0-9); NEUT % 90 % (31-73); PLATELET COUNT 203 x10^3/uL (140-400); RED BLOOD COUNT 3.02 x10^6/uL (3.50-5.40); RED CELL DISTRIBUTION WIDTH 22.4 % (11.5-14.5); WHITE BLOOD COUNT 14.4 x10^3/uL (4.0-11.0)
[2020-04-01 08:54] LABS: CALCIUM 8.9 mg/dL (8.5-10.1); CREATININE 0.9 mg/dL (0.6-1.0); GFR 59.8; POTASSIUM 3.8 mmol/L (3.5-5.1)
[2020-04-01 08:57] LABS: ALBUMIN 3.5 g/dL (3.4-5.0); DIRECT BILIRUBIN 0.1 mg/dL (0.0-0.2); TOTAL BILIRUBIN 0.3 mg/dL (0.2-1.0)
[2020-04-01 09:52] LABS: % BANDS 4 % (0-9); % LYMPHS 4 % (24-48); % MONOS 4 % (0-10); % SEGS 88 % (35-66)
[2020-04-01 09:53] LABS: ANISOCYTOSIS SLIGHT; PLT ESTIMATE ADEQUATE (ADEQUATE); POLYCHROMASIA OCCASIONAL
== END | disposition home or self-care (01) ==
LOC: ONCLAB 08:10
PROVIDERS: ATTEND Internal Medicine Hematology & Oncology
DX: C51.8 Malignant neoplasm of overlapping sites of vulva (principal); C77.4 Secondary and unspecified malignant neoplasm of inguinal and lower limb lymph nodes; D50.0 Iron deficiency anemia secondary to blood loss (chronic); D72.818 Other decreased white blood cell count; R74.8 Abnormal levels of other serum enzymes; E55.9 Vitamin D deficiency, unspecified
CPT/HCPCS: 36415; 80053; 80076; 83615; 85007; 85025

== ENCOUNTER → 2020-04-08 | Outpatient (CLI) | payer MEDICARE, OTHER ==
[2020-03-05 09:51] VITALS: BP 124/62
[2020-04-08 09:59] LABS: BASO % 0 % (0-3); EOS % 0 % (0-3); HEMATOCRIT 32.3 % (36.0-47.0); HEMOGLOBIN 11.1 g/dL (12.0-15.5); LYMPH # 0.6 x10^3/uL (1.0-4.8); LYMPH % 6 % (24-48); MEAN CORPUSCULAR HEMOGLOBIN 35 pg (25-35); MEAN CORPUSCULAR HGB CONC 35 g/dL (31-37); MEAN CORPUSCULAR VOLUME 100 fL (79-100); MONO # 0.5 x10^3/uL (0.0-1.1); MONO % 5 % (0-9); NEUT # 9.1 x10^3/uL (1.8-7.7); NEUT % 89 % (31-73); PLATELET COUNT 214 x10^3/uL (140-400); RED BLOOD COUNT 3.22 x10^6/uL (3.50-5.40); RED CELL DISTRIBUTION WIDTH 22.3 % (11.5-14.5); WHITE BLOOD COUNT 10.2 x10^3/uL (4.0-11.0)
[2020-04-08 10:16] LABS: CALCIUM 8.8 mg/dL (8.5-10.1); CREATININE 0.9 mg/dL (0.6-1.0); GFR 59.8; POTASSIUM 3.9 mmol/L (3.5-5.1)
[2020-04-08 10:23] LABS: ALBUMIN 3.4 g/dL (3.4-5.0); ALBUMIN/GLOBULIN RATIO 0.9 (1.0-1.7); TOTAL BILIRUBIN 0.3 mg/dL (0.2-1.0)
== END | disposition home or self-care (01) ==
LOC: ONCLAB 08:43
PROVIDERS: ATTEND Internal Medicine Hematology & Oncology
DX: C78.01 Secondary malignant neoplasm of right lung (principal); C77.4 Secondary and unspecified malignant neoplasm of inguinal and lower limb lymph nodes; C51.8 Malignant neoplasm of overlapping sites of vulva
CPT/HCPCS: 36415; 80053; 85025

== ENCOUNTER → 2020-04-12 | Outpatient (CLI) | payer MEDICARE, OTHER ==
[2020-03-05 09:51] VITALS: BP 124/62
[~2020-04-12] MED LIST changes: -IBUP-1027 PO; -vitamin d PO
--- NOTE | 2020-04-12 12:39 | RAD ---
EXAM: PET/CT SKULL BASE TO MID THIGH. HISTORY: Vulvar cancer restaging, lung lesion. COMPARISON: 12/19/2019. TECHNIQUE: CT was performed from the skull base through the mid thighs for the purposes of attenuation correction. 15.1 mCi F-18 fluorodeoxyglucose (FDG) was administered intravenously. After an uptake period, positron emission tomography was performed from the skull base through the mid thighs. The PET and CT data were fused and interpreted in combination a dedicated workstation. Blood glucose level was 127 mg/dL at the time of FDG administration. FINDINGS: Uptake in the right medial lung base persists with maximal SUV 5.9. It has increased in size and now measures 3.3 x 3.0 cm as compared with 2.0 cm previously. Right paratracheal lymph nodes demonstrate Max SUV only 2.8 and appear stable. A mass along the right pelvic sidewall has increased in size and now measures 3.8 x 3.1 cm. The previously it measured 2.3 cm. Subcentimeter hypermetabolic lymph nodes demonstrate maximum SUV 5.5 in the left para-aortic distribution demonstrate on image 97, and 5.0 just anterior to the right renal hilum on image 102. A focus of uptake along the right aspect of the larynx demonstrates maximum SUV 3.9. No focal mass is appreciable and this may reflect muscular activity with some misregistration artifact. Additional CT findings include a left hip arthroplasty. A right-sided port catheter has its tip in the superior cavoatrial junction. Stool throughout the colon suggests mild constipation. Tiny uncalcified nodules in the apices measure 2 mm and are likely benign at this small size. Attention upper follow-up. IMPRESSION: 1. Interval increase in a right lower lobe mass, consistent with metastatic disease versus a 2nd primary. 2. Interval increase in a metastatic lymph node mass along the right pelvic sidewall. Small hypermetabolic retroperitoneal nodes are also likely involved.
== END | disposition home or self-care (01) ==
LOC: PETSC 07:59
PROVIDERS: ATTEND Physician Assistant
DX: C51.8 Malignant neoplasm of overlapping sites of vulva (principal); Z96.642 Presence of left artificial hip joint
CPT/HCPCS: 78815; A9552

== ENCOUNTER → 2020-04-15 | Outpatient (CLI) | payer MEDICARE, OTHER ==
[2020-03-05 09:51] VITALS: BP 124/62
[2020-04-15 09:36] LABS: BASO % 0 % (0-3); EOS % 0 % (0-3); HEMATOCRIT 32.6 % (36.0-47.0); HEMOGLOBIN 11.2 g/dL (12.0-15.5); LYMPH # 0.8 x10^3/uL (1.0-4.8); LYMPH % 4 % (24-48); MEAN CORPUSCULAR HEMOGLOBIN 35 pg (25-35); MEAN CORPUSCULAR HGB CONC 34 g/dL (31-37); MEAN CORPUSCULAR VOLUME 102 fL (79-100); MONO # 0.7 x10^3/uL (0.0-1.1); MONO % 3 % (0-9); NEUT # 18.3 x10^3/uL (1.8-7.7); NEUT % 92 % (31-73); PLATELET COUNT 193 x10^3/uL (140-400); WHITE BLOOD COUNT 19.9 x10^3/uL (4.0-11.0)
[2020-04-15 10:02] LABS: CALCIUM 8.7 mg/dL (8.5-10.1); CREATININE 0.9 mg/dL (0.6-1.0); GFR 59.8; POTASSIUM 4.2 mmol/L (3.5-5.1)
[2020-04-15 10:09] LABS: ALBUMIN 3.5 g/dL (3.4-5.0); TOTAL BILIRUBIN 0.4 mg/dL (0.2-1.0); TOTAL PROTEIN 7.1 g/dL (6.4-8.2)
[2020-04-15 10:11] LABS: % BANDS 14 % (0-9); % LYMPHS 4 % (24-48); % MONOS 2 % (0-10); % SEGS 80 % (35-66)
[2020-04-15 10:12] LABS: ANISOCYTOSIS SLIGHT; PLT ESTIMATE ADEQUATE (ADEQUATE)
== END | disposition home or self-care (01) ==
LOC: ONCLAB 09:03
PROVIDERS: ATTEND Internal Medicine Hematology & Oncology
DX: C51.8 Malignant neoplasm of overlapping sites of vulva (principal)
CPT/HCPCS: 36415; 80053; 85007; 85025

== ENCOUNTER → 2020-04-22 | Outpatient (CLI) | payer MEDICARE, OTHER ==
[2020-03-05 09:51] VITALS: BP 124/62
[~2020-04-22] MED LIST changes: +IBUP-1027 PO; +vitamin d PO
[2020-04-22 09:18] LABS: BASO % 0 % (0-3); EOS % 1 % (0-3); HEMATOCRIT 33.7 % (36.0-47.0); HEMOGLOBIN 11.4 g/dL (12.0-15.5); LYMPH # 0.6 x10^3/uL (1.0-4.8); LYMPH % 8 % (24-48); MEAN CORPUSCULAR HEMOGLOBIN 35 pg (25-35); MEAN CORPUSCULAR HGB CONC 34 g/dL (31-37); MEAN CORPUSCULAR VOLUME 103 fL (79-100); MONO # 0.4 x10^3/uL (0.0-1.1); MONO % 5 % (0-9); NEUT # 6.5 x10^3/uL (1.8-7.7); NEUT % 87 % (31-73); PLATELET COUNT 168 x10^3/uL (140-400); RED BLOOD COUNT 3.28 x10^6/uL (3.50-5.40); RED CELL DISTRIBUTION WIDTH 20.3 % (11.5-14.5); WHITE BLOOD COUNT 7.5 x10^3/uL (4.0-11.0)
[2020-04-22 09:44] LABS: ALBUMIN 3.5 g/dL (3.4-5.0); CREATININE 0.9 mg/dL (0.6-1.0); GFR 59.8; POTASSIUM 4.1 mmol/L (3.5-5.1); TOTAL BILIRUBIN 0.4 mg/dL (0.2-1.0); TOTAL PROTEIN 7.1 g/dL (6.4-8.2)
== END ==
LOC: ONCLAB 08:50
PROVIDERS: ATTEND Internal Medicine Hematology & Oncology
DX: C51.8 Malignant neoplasm of overlapping sites of vulva (principal)
CPT/HCPCS: 36415; 80053; 85025

== ENCOUNTER 2020-04-26 08:27 | Outpatient (CLI) | payer MEDICARE, OTHER ==
[2020-04-26] VITALS (13 sets, daily range): BP systolic 111–152; BP diastolic 57–70
[~2020-04-26 08:27] MED LIST changes: -IBUP-1027 PO; -vitamin d PO
[2020-04-26] MEDS ORDERED: LIDOCAINE WITH 8.4% SOD BICARB 3 ML DISP.SYRIN. ONE (09:05)
[2020-04-26] MEDS ORDERED: vitamin d PO (09:24)
[2020-04-26] MEDS ORDERED: IBUP-1027 PO (09:24)
[2020-04-26 09:42] LABS: BASO % 1 % (0-3); EOS % 1 % (0-3); HEMATOCRIT 31.1 % (36.0-47.0); HEMOGLOBIN 10.6 g/dL (12.0-15.5); LYMPH # 0.3 x10^3/uL (1.0-4.8); LYMPH % 11 % (24-48); MEAN CORPUSCULAR HEMOGLOBIN 35 pg (25-35); MEAN CORPUSCULAR HGB CONC 34 g/dL (31-37); MEAN CORPUSCULAR VOLUME 102 fL (79-100); MONO # 0.1 x10^3/uL (0.0-1.1); MONO % 5 % (0-9); NEUT # 2.3 x10^3/uL (1.8-7.7); NEUT % 83 % (31-73); PLATELET COUNT 156 x10^3/uL (140-400); RED BLOOD COUNT 3.04 x10^6/uL (3.50-5.40); RED CELL DISTRIBUTION WIDTH 19.3 % (11.5-14.5); WHITE BLOOD COUNT 2.8 x10^3/uL (4.0-11.0)
[2020-04-26 09:50] LABS: PROTHROMBIN TIME PATIENT 13.3 SEC (11.7-14.0)
[2020-04-26] MEDS ORDERED: MIDAZOLAM HCL/PF 2 MG/2 ML VIAL. ONE (10:07)
[2020-04-26] MEDS ORDERED: fentaNYL PF VIAL 100 MCG/2 ML VIAL ONE (10:07)
[2020-04-26 10:11] LABS: % ATYL 1 % (0-0); % BANDS 16 % (0-9); % LYMPHS 16 % (24-48); % MONOS 4 % (0-10); % SEGS 63 % (35-66)
[2020-04-26 10:12] LABS: ANISOCYTOSIS SLIGHT; PLT ESTIMATE ADEQUATE (ADEQUATE)
[2020-04-26 10:13] LABS: OVALOCYTES FEW
[2020-04-26] MEDS ORDERED: fentaNYL PF VIAL 100 MCG/2 ML VIAL IV ONE (10:15)
[2020-04-26] MEDS ORDERED: LIDOCAINE WITH 8.4% SOD BICARB 3 ML DISP.SYRIN. IJ ONE (10:15)
[2020-04-26] MEDS ORDERED: MIDAZOLAM HCL/PF 2 MG/2 ML VIAL. IV ONE (10:15)
--- NOTE | 2020-04-26 10:45 | PDOC ---
MODERATE SEDATION ASSESSMENT RISKS/ALTERNATIVES Risks/Alternatives Risks and alternatives of this type of sedation and procedure discussed with: RISK/ALTERNATIVES: Patient H & P ON CHART H & P H & P on chart and reviewed for co-morbid conditions and appropriate labs. H&P ON CHART: Yes STATUS PREG STATUS ASSESSED: Yes MEDS/ALLERGIES REVIEWED Meds/Allergies Reviewed Medications and Allergies including time and route of recently administered narcotics and sedatives. MEDS/ALLERGIES REVIEWED: Yes ASA RATING ASA RATING: II AIRWAY ASSESSMENT Airway Assessment Airway patency, oral function limitations, presence of caps, crowns, dentures, partials, and ability to extend neck assessed. AIRWAY ASSESSMENT: Yes MALLAMPATI SCORE MALLAMPATI SCORE: II PRE-SEDATION ASSESSMENT PRE-SEDATION ASSESSMENT: Yes KATHI FALK MD Apr 26, 2020 10:45
--- NOTE | 2020-04-26 10:46 | PDOC ---
BRIEF OPERATIVE NOTE Pre-Op Diagnosis Right lung nodule Post-Op Diagnosis same Procedure Performed CT biopsy Surgeon Delio Anesthesia Type: Conscious Sedation Specimens Obtained 7 x 20g core fragments Findings right lung base nodule Complications no immediate KATHI FALK MD Apr 26, 2020 10:46
--- NOTE | 2020-04-26 13:10 | NUR ---
Discharge Note: MORRIS SIMPSON Discharge instructions and discharge home medications reviewed with Patient and a copy given. All questions have been answered and understanding verbalized. The following instructions and handouts were given: incision care, post moderate sedation, lung biopsy. Discontinued lines and drains: deaccessed the patient's port. Patient discharged to home with via personal vehicle.
--- NOTE | 2020-04-26 13:41 | RAD ---
Inspiration and expiration frontal chest radiograph without comparison for status post right lung biopsy. FINDINGS: There is no pneumothorax, pleural effusion, or focal pneumonic infiltrate. Heart size is mildly enlarged. Subtle coarse interstitial changes may reflect mild interstitial pulmonary edema or chronic interstitial lung disease. Aortic atherosclerosis is seen. Port is present. IMPRESSION: 1. No acute cardiopulmonary abnormality. Electronically signed by: Isreal Kebede MD (04/26/2020 1:38 PM) [id number]
--- NOTE | 2020-04-26 14:39 | RAD ---
Procedure: CT-guided biopsy of right lung nodule Clinical Indication: Adult female with right lung nodule Sedation: Conscious sedation was administered with a total intraprocedural [id number] time of 23 minutes. The patient was monitored by a qualified independent observer throughout the time of sedation. Please refer to the medical record for exact doses of medications utilized to achieve moderate sedation. Antibiotics: None Sterility: The procedure was performed in its entirety using appropriate elements of sterile technique. Consent: The procedure was explained in its entirety to the patient or the patients designated jewelry sales representative by a member of the treatment team, including a discussion of the risks, benefits and commonly accepted alternatives to the procedure, as well as the expected consequences of no therapy whatsoever. Discussion of the risks included, but was not limited to, those that are most frequent and those that are rare but possibly severe or life-threatening, as well as the possibility of unforeseen complications. Technique and Findings: Following informed consent, the patient was prepped and draped in usual sterile fashion. Primary CT scan of the area of interest was performed. 1% lidocaine was used to achieve local anesthesia over the area of interest. A small dermatotomy was made. Under periodic CT surveillance, a 19-gauge needle guide was advanced towards the target lesion in 7 separate 20-gauge core biopsy passes were performed yielding several scant tissue fragments which were preserved in formalin. A blood patch was applied as the needle guide was removed and hemostasis was achieved with manual compression. Complications: No immediate Impression: 1. CT-guided biopsy of a right lung nodule as described. PQRS Compliance Statement: One or more of the following individualized dose reduction techniques were utilized for this examination: 1. Automated exposure control 2. Adjustment of the mA and/or kV according to patient size 3. Use of iterative reconstruction technique
--- NOTE | 2020-04-27 17:07 | PATHOLOGY ---
[facility] Accession Number: [id number] . 01 Material submitted: . lung - RIGHT LUNG BIOPSY. Modifiers: right . 01 Clinical history: . Rt lung mass . 02 Diagnosis: Right lung mass, CT guided needle biopsies: - SQUAMOUS CELL CARCINOMA, MODERATELY DIFFERENTIATED. SEE COMMENT. ([facility] 04/27/2020) [facility] 04/27/2020 0907 Local . 02 Comment: Sections of the right lung mass CT guided biopsy reveal a malignant epithelial neoplasm. The neoplasm is composed of irregular nests of atypical squamous epithelial cells having variable amounts of pale eosinophilic cytoplasm and possessing enlarged, moderately pleomorphic hyperchromatic nuclei containing prominent nucleoli. There are intercellular bridges present. Tumor cells focally have dense eosinophilic keratinized cytoplasm and there are focal keratin pearls. Mitotic figures are present. The morphologic findings are supportive of the diagnosis of a moderately differentiated squamous cell carcinoma. The case is also examined by Dr. Moreland, who concurs with the diagnosis. ([facility] 04/27/2020) . 02 Electronically signed: . Dean Rodriguez MD, Pathologist NPI- [id number] . 01 Gross description: . The specimen is received in formalin, labeled "Ghazal Weldon, right lung biopsy" and consists of multiple delicate pink-negron needle cores/fragments measuring 1.5 x 0.5 x 0.1 cm in aggregate which are entirely submitted in A1. (SDY; 04/26/2020) SYU/SYU 04/26/2020 1519 Local . 02 Pathologist provided ICD-10: C34.91 . 02 CPT . 808024 Specimen Comment: A courtesy copy of this report has been sent to [phone], [phone] Specimen Comment: [id number] Specimen Comment: Report sent to / DR COTE Performed at: 01 [facility] [address] [facility] [address], [place], [place] [id number] MD Oscar South MD Phone: [phone] Performed at: 02 [facility] [address] [place], [place] [id number] MD Dean Rodriguez MD Phone: [phone]
== END 2020-04-26 13:00 | disposition home or self-care (01) ==
LOC: INTRAD 08:27
PROVIDERS: ATTEND Internal Medicine Hematology & Oncology
DX: C34.91 Malignant neoplasm of unspecified part of right bronchus or lung (principal); I70.0 Atherosclerosis of aorta
CPT/HCPCS: 32405; 36415; 71046; 77012; 85007; 85025; 85610; 88305; 99152; 99153; J2250; J3010; J3490

== ENCOUNTER → 2020-04-29 | Outpatient (CLI) | payer MEDICARE, OTHER ==
[2020-04-26 12:48] VITALS: BP 122/57
[~2020-04-29] MED LIST changes: +IBUP-1027 PO; +vitamin d PO
[2020-04-29 08:24] LABS: BASO % 0 % (0-3); EOS # 0.1 x10^3/uL (0.0-0.7); EOS % 1 % (0-3); HEMATOCRIT 33.4 % (36.0-47.0); HEMOGLOBIN 11.4 g/dL (12.0-15.5); LYMPH # 0.7 x10^3/uL (1.0-4.8); LYMPH % 7 % (24-48); MEAN CORPUSCULAR HEMOGLOBIN 35 pg (25-35); MEAN CORPUSCULAR HGB CONC 34 g/dL (31-37); MEAN CORPUSCULAR VOLUME 103 fL (79-100); MONO # 0.5 x10^3/uL (0.0-1.1); MONO % 5 % (0-9); NEUT # 9.3 x10^3/uL (1.8-7.7); NEUT % 88 % (31-73); PLATELET COUNT 179 x10^3/uL (140-400); RED BLOOD COUNT 3.24 x10^6/uL (3.50-5.40); RED CELL DISTRIBUTION WIDTH 18.8 % (11.5-14.5); WHITE BLOOD COUNT 10.6 x10^3/uL (4.0-11.0)
[2020-04-29 08:29] LABS: CREATININE 0.8 mg/dL (0.6-1.0); GFR 68.5; POTASSIUM 4.1 mmol/L (3.5-5.1)
[2020-04-29 08:35] LABS: ALBUMIN 3.5 g/dL (3.4-5.0); ALBUMIN/GLOBULIN RATIO 0.9 (1.0-1.7); TOTAL BILIRUBIN 0.3 mg/dL (0.2-1.0); TOTAL PROTEIN 7.3 g/dL (6.4-8.2)
[2020-04-29 11:17] LABS: % BANDS 7 % (0-9); % EOS 2 % (0-5); % LYMPHS 6 % (24-48); % MONOS 4 % (0-10); % SEGS 81 % (35-66); PLT ESTIMATE ADEQUATE (ADEQUATE); POIKILOCYTOSIS SLIGHT
[2020-04-29 11:18] LABS: TOXIC GRANULATION SLIGHT
== END ==
LOC: ONCLAB 08:08
PROVIDERS: ATTEND Internal Medicine Hematology & Oncology
DX: C51.8 Malignant neoplasm of overlapping sites of vulva (principal)
CPT/HCPCS: 36415; 80053; 85007; 85025

== ENCOUNTER → 2020-05-06 | Outpatient (CLI) | payer MEDICARE, OTHER ==
[2020-04-26 12:48] VITALS: BP 122/57
[2020-05-06 08:38] LABS: BASO % 0 % (0-3); EOS # 0.1 x10^3/uL (0.0-0.7); EOS % 1 % (0-3); HEMATOCRIT 33.1 % (36.0-47.0); HEMOGLOBIN 11.1 g/dL (12.0-15.5); LYMPH # 0.6 x10^3/uL (1.0-4.8); LYMPH % 5 % (24-48); MEAN CORPUSCULAR HEMOGLOBIN 35 pg (25-35); MEAN CORPUSCULAR HGB CONC 34 g/dL (31-37); MEAN CORPUSCULAR VOLUME 104 fL (79-100); MONO # 0.5 x10^3/uL (0.0-1.1); MONO % 5 % (0-9); NEUT # 9.7 x10^3/uL (1.8-7.7); NEUT % 89 % (31-73); PLATELET COUNT 231 x10^3/uL (140-400); RED BLOOD COUNT 3.18 x10^6/uL (3.50-5.40); RED CELL DISTRIBUTION WIDTH 17.7 % (11.5-14.5); WHITE BLOOD COUNT 10.9 x10^3/uL (4.0-11.0)
[2020-05-06 08:48] LABS: CALCIUM 8.7 mg/dL (8.5-10.1); CREATININE 0.8 mg/dL (0.6-1.0); GFR 68.5; POTASSIUM 4.2 mmol/L (3.5-5.1)
[2020-05-06 08:54] LABS: ALBUMIN 3.4 g/dL (3.4-5.0); ALBUMIN/GLOBULIN RATIO 0.9 (1.0-1.7); TOTAL BILIRUBIN 0.4 mg/dL (0.2-1.0); TOTAL PROTEIN 7.2 g/dL (6.4-8.2)
== END | disposition home or self-care (01) ==
LOC: ONCLAB 08:11
PROVIDERS: ATTEND Internal Medicine Hematology & Oncology
DX: C51.8 Malignant neoplasm of overlapping sites of vulva (principal)
CPT/HCPCS: 36415; 80053; 85025

== ENCOUNTER → 2020-05-12 | Outpatient (CLI) | payer MEDICARE, OTHER ==
[2020-04-26 12:48] VITALS: BP 122/57
--- NOTE | 2020-05-12 10:50 | RESP ---
DATE OF SERVICE: 05/12/2020 PROCEDURE: PFTs. REFERRING PHYSICIAN: Junior Bhakta MD. The patient's FVC was 2.5 which is 103% predicted, FEV1 1.9 which is 102% predicted. FEV1/FVC ratio was normal. No bronchodilators given. Total lung capacity was 106% predicted. Residual volume was 124% predicted. Diffusion capacity normal at 112% predicted. IMPRESSION: 1. No evidence of obstructive airway disease. 2. No evidence of any restrictive lung disease. 3. No bronchodilators given. 4. Normal diffusion capacity. COLLETTE SOLIZ MD DR: JONATHAN/royal JOB#: [id number] / [id number] JUNIOR Aguiar MD
== END | disposition home or self-care (01) ==
LOC: PF 07:28
PROVIDERS: ATTEND Radiology Radiation Oncology
DX: C78.01 Secondary malignant neoplasm of right lung (principal)
CPT/HCPCS: 94010; 94726; 94729

== ENCOUNTER → 2020-05-13 | Outpatient (CLI) | payer MEDICARE, OTHER ==
[2020-04-26 12:48] VITALS: BP 122/57
[2020-05-13 08:52] LABS: BASO % 0 % (0-3); EOS % 0 % (0-3); HEMATOCRIT 31.8 % (36.0-47.0); HEMOGLOBIN 10.8 g/dL (12.0-15.5); LYMPH # 0.4 x10^3/uL (1.0-4.8); LYMPH % 5 % (24-48); MEAN CORPUSCULAR HEMOGLOBIN 35 pg (25-35); MEAN CORPUSCULAR HGB CONC 34 g/dL (31-37); MEAN CORPUSCULAR VOLUME 104 fL (79-100); MONO # 0.4 x10^3/uL (0.0-1.1); MONO % 5 % (0-9); NEUT # 8.3 x10^3/uL (1.8-7.7); NEUT % 90 % (31-73); PLATELET COUNT 209 x10^3/uL (140-400); RED BLOOD COUNT 3.06 x10^6/uL (3.50-5.40); RED CELL DISTRIBUTION WIDTH 16.8 % (11.5-14.5); WHITE BLOOD COUNT 9.2 x10^3/uL (4.0-11.0)
[2020-05-13 09:16] LABS: CALCIUM 8.7 mg/dL (8.5-10.1); CREATININE 0.9 mg/dL (0.6-1.0); GFR 59.8; POTASSIUM 4.2 mmol/L (3.5-5.1)
[2020-05-13 09:22] LABS: ALBUMIN 3.2 g/dL (3.4-5.0); ALBUMIN/GLOBULIN RATIO 0.8 (1.0-1.7); TOTAL BILIRUBIN 0.3 mg/dL (0.2-1.0)
[2020-05-13 10:30] LABS: % BANDS 8 % (0-9); % LYMPHS 8 % (24-48); % MONOS 3 % (0-10); % SEGS 81 % (35-66); PLT ESTIMATE ADEQUATE (ADEQUATE)
== END ==
LOC: ONCLAB 08:31
PROVIDERS: ATTEND Internal Medicine Hematology & Oncology
DX: C51.8 Malignant neoplasm of overlapping sites of vulva (principal); C77.4 Secondary and unspecified malignant neoplasm of inguinal and lower limb lymph nodes; C78.01 Secondary malignant neoplasm of right lung
CPT/HCPCS: 36415; 80053; 85007; 85025

== ENCOUNTER → 2020-05-20 | Outpatient (CLI) | payer MEDICARE, OTHER ==
[2020-04-26 12:48] VITALS: BP 122/57
[2020-05-20 08:40] LABS: BASO % 1 % (0-3); EOS # 0.1 x10^3/uL (0.0-0.7); EOS % 2 % (0-3); HEMATOCRIT 32.4 % (36.0-47.0); LYMPH # 0.4 x10^3/uL (1.0-4.8); LYMPH % 10 % (24-48); MEAN CORPUSCULAR HEMOGLOBIN 35 pg (25-35); MEAN CORPUSCULAR HGB CONC 34 g/dL (31-37); MEAN CORPUSCULAR VOLUME 104 fL (79-100); MONO # 0.3 x10^3/uL (0.0-1.1); MONO % 8 % (0-9); NEUT # 2.7 x10^3/uL (1.8-7.7); NEUT % 79 % (31-73); PLATELET COUNT 216 x10^3/uL (140-400); RED BLOOD COUNT 3.12 x10^6/uL (3.50-5.40); WHITE BLOOD COUNT 3.5 x10^3/uL (4.0-11.0)
[2020-05-20 08:51] LABS: CALCIUM 8.6 mg/dL (8.5-10.1); CREATININE 0.9 mg/dL (0.6-1.0); GFR 59.8; POTASSIUM 4.1 mmol/L (3.5-5.1)
[2020-05-20 08:57] LABS: ALBUMIN 3.1 g/dL (3.4-5.0); ALBUMIN/GLOBULIN RATIO 0.8 (1.0-1.7); TOTAL BILIRUBIN 0.3 mg/dL (0.2-1.0); TOTAL PROTEIN 7.1 g/dL (6.4-8.2)
== END ==
LOC: ONCLAB 08:04
PROVIDERS: ATTEND Internal Medicine Hematology & Oncology
DX: C51.8 Malignant neoplasm of overlapping sites of vulva (principal)
CPT/HCPCS: 36415; 80053; 85025

== ENCOUNTER → 2020-05-27 | Outpatient (CLI) | payer MEDICARE, OTHER ==
[2020-04-26 12:48] VITALS: BP 122/57
[2020-05-27 08:46] LABS: BASO % 1 % (0-3); EOS % 2 % (0-3); HEMATOCRIT 33.5 % (36.0-47.0); HEMOGLOBIN 11.4 g/dL (12.0-15.5); LYMPH # 0.2 x10^3/uL (1.0-4.8); LYMPH % 9 % (24-48); MEAN CORPUSCULAR HEMOGLOBIN 35 pg (25-35); MEAN CORPUSCULAR HGB CONC 34 g/dL (31-37); MEAN CORPUSCULAR VOLUME 104 fL (79-100); MONO # 0.3 x10^3/uL (0.0-1.1); MONO % 12 % (0-9); NEUT % 76 % (31-73); PLATELET COUNT 200 x10^3/uL (140-400); RED BLOOD COUNT 3.24 x10^6/uL (3.50-5.40); RED CELL DISTRIBUTION WIDTH 15.8 % (11.5-14.5); WHITE BLOOD COUNT 2.6 x10^3/uL (4.0-11.0)
[2020-05-27 08:50] LABS: CALCIUM 8.9 mg/dL (8.5-10.1); CREATININE 0.9 mg/dL (0.6-1.0); GFR 59.8; POTASSIUM 4.2 mmol/L (3.5-5.1)
[2020-05-27 08:57] LABS: ALBUMIN 3.3 g/dL (3.4-5.0); ALBUMIN/GLOBULIN RATIO 0.8 (1.0-1.7); TOTAL BILIRUBIN 0.4 mg/dL (0.2-1.0); TOTAL PROTEIN 7.2 g/dL (6.4-8.2)
[2020-05-27 10:52] LABS: % EOS 2 % (0-5); % LYMPHS 12 % (24-48); % MONOS 9 % (0-10); % SEGS 77 % (35-66); PLT ESTIMATE ADEQUATE (ADEQUATE)
== END | disposition home or self-care (01) ==
LOC: ONCLAB 08:14
PROVIDERS: ATTEND Physician Assistant
DX: C51.8 Malignant neoplasm of overlapping sites of vulva (principal)
CPT/HCPCS: 36415; 80053; 85007; 85025

== ENCOUNTER → 2020-06-03 | Outpatient (CLI) | payer MEDICARE, OTHER ==
[2020-04-26 12:48] VITALS: BP 122/57
[2020-06-03 08:36] LABS: BASO % 0 % (0-3); EOS # 0.1 x10^3/uL (0.0-0.7); EOS % 2 % (0-3); HEMATOCRIT 33.5 % (36.0-47.0); HEMOGLOBIN 11.5 g/dL (12.0-15.5); LYMPH # 0.2 x10^3/uL (1.0-4.8); LYMPH % 8 % (24-48); MEAN CORPUSCULAR HEMOGLOBIN 35 pg (25-35); MEAN CORPUSCULAR HGB CONC 34 g/dL (31-37); MEAN CORPUSCULAR VOLUME 102 fL (79-100); MONO # 0.4 x10^3/uL (0.0-1.1); MONO % 12 % (0-9); NEUT # 2.5 x10^3/uL (1.8-7.7); NEUT % 78 % (31-73); PLATELET COUNT 168 x10^3/uL (140-400); RED BLOOD COUNT 3.28 x10^6/uL (3.50-5.40); RED CELL DISTRIBUTION WIDTH 15.7 % (11.5-14.5); WHITE BLOOD COUNT 3.2 x10^3/uL (4.0-11.0)
[2020-06-03 08:51] LABS: CREATININE 0.9 mg/dL (0.6-1.0); GFR 59.8; POTASSIUM 4.2 mmol/L (3.5-5.1)
[2020-06-03 08:57] LABS: ALBUMIN 3.2 g/dL (3.4-5.0); ALBUMIN/GLOBULIN RATIO 0.8 (1.0-1.7); TOTAL BILIRUBIN 0.4 mg/dL (0.2-1.0); TOTAL PROTEIN 7.1 g/dL (6.4-8.2)
== END | disposition home or self-care (01) ==
LOC: ONCLAB 08:21
PROVIDERS: ATTEND Internal Medicine Hematology & Oncology
DX: C51.8 Malignant neoplasm of overlapping sites of vulva (principal)
CPT/HCPCS: 36415; 80053; 85025

== ENCOUNTER → 2020-06-10 | Outpatient (CLI) | payer MEDICARE, OTHER ==
[2020-04-26 12:48] VITALS: BP 122/57
[2020-06-10 08:58] LABS: BASO % 0 % (0-3); EOS # 0.1 x10^3/uL (0.0-0.7); EOS % 1 % (0-3); HEMATOCRIT 33.2 % (36.0-47.0); HEMOGLOBIN 11.5 g/dL (12.0-15.5); LYMPH # 0.2 x10^3/uL (1.0-4.8); LYMPH % 6 % (24-48); MEAN CORPUSCULAR HEMOGLOBIN 35 pg (25-35); MEAN CORPUSCULAR HGB CONC 35 g/dL (31-37); MEAN CORPUSCULAR VOLUME 102 fL (79-100); MONO # 0.5 x10^3/uL (0.0-1.1); MONO % 11 % (0-9); NEUT # 3.5 x10^3/uL (1.8-7.7); NEUT % 82 % (31-73); PLATELET COUNT 138 x10^3/uL (140-400); RED BLOOD COUNT 3.26 x10^6/uL (3.50-5.40); RED CELL DISTRIBUTION WIDTH 15.4 % (11.5-14.5); WHITE BLOOD COUNT 4.3 x10^3/uL (4.0-11.0)
[2020-06-10 09:10] LABS: CALCIUM 9.1 mg/dL (8.5-10.1); CREATININE 0.9 mg/dL (0.6-1.0); GFR 59.7; POTASSIUM 4.2 mmol/L (3.5-5.1)
[2020-06-10 09:15] LABS: ALBUMIN 3.3 g/dL (3.4-5.0); ALBUMIN/GLOBULIN RATIO 0.8 (1.0-1.7); TOTAL BILIRUBIN 0.4 mg/dL (0.2-1.0); TOTAL PROTEIN 7.2 g/dL (6.4-8.2)
[2020-06-10 12:57] LABS: % BANDS 4 % (0-9); % BASOS 1 % (0-3); % LYMPHS 10 % (24-48); % MONOS 8 % (0-10); % SEGS 77 % (35-66); PLT ESTIMATE ADEQUATE (ADEQUATE)
== END | disposition home or self-care (01) ==
LOC: ONCLAB 08:30
PROVIDERS: ATTEND Internal Medicine Hematology & Oncology
DX: C51.8 Malignant neoplasm of overlapping sites of vulva (principal)
CPT/HCPCS: 36415; 80053; 85007; 85025

== ENCOUNTER → 2020-06-17 | Outpatient (CLI) | payer MEDICARE, OTHER ==
[2020-04-26 12:48] VITALS: BP 122/57
[2020-06-17 08:50] LABS: BASO % 0 % (0-3); EOS % 1 % (0-3); HEMATOCRIT 32.5 % (36.0-47.0); HEMOGLOBIN 11.1 g/dL (12.0-15.5); LYMPH # 0.3 x10^3/uL (1.0-4.8); LYMPH % 6 % (24-48); MEAN CORPUSCULAR HEMOGLOBIN 35 pg (25-35); MEAN CORPUSCULAR HGB CONC 34 g/dL (31-37); MEAN CORPUSCULAR VOLUME 101 fL (79-100); MONO # 0.5 x10^3/uL (0.0-1.1); MONO % 12 % (0-9); NEUT # 3.6 x10^3/uL (1.8-7.7); NEUT % 81 % (31-73); PLATELET COUNT 124 x10^3/uL (140-400); RED BLOOD COUNT 3.21 x10^6/uL (3.50-5.40); RED CELL DISTRIBUTION WIDTH 15.1 % (11.5-14.5); WHITE BLOOD COUNT 4.5 x10^3/uL (4.0-11.0)
[2020-06-17 09:10] LABS: CREATININE 0.9 mg/dL (0.6-1.0); GFR 59.7; POTASSIUM 4.3 mmol/L (3.5-5.1)
[2020-06-17 09:22] LABS: ALBUMIN 3.2 g/dL (3.4-5.0); ALBUMIN/GLOBULIN RATIO 0.8 (1.0-1.7); TOTAL BILIRUBIN 0.4 mg/dL (0.2-1.0); TOTAL PROTEIN 7.1 g/dL (6.4-8.2)
== END | disposition home or self-care (01) ==
LOC: ONCLAB 08:10
PROVIDERS: ATTEND Internal Medicine Hematology & Oncology
DX: C51.8 Malignant neoplasm of overlapping sites of vulva (principal)
CPT/HCPCS: 36415; 80053; 85025

== ENCOUNTER → 2020-06-24 | Outpatient (CLI) | payer MEDICARE ==
[2020-04-26 12:48] VITALS: BP 122/57
[2020-06-24 08:39] LABS: BASO % 0 % (0-3); EOS % 2 % (0-3); HEMATOCRIT 31.9 % (36.0-47.0); HEMOGLOBIN 10.9 g/dL (12.0-15.5); LYMPH # 0.3 x10^3/uL (1.0-4.8); LYMPH % 10 % (24-48); MEAN CORPUSCULAR HEMOGLOBIN 34 pg (25-35); MEAN CORPUSCULAR HGB CONC 34 g/dL (31-37); MEAN CORPUSCULAR VOLUME 100 fL (79-100); MONO # 0.3 x10^3/uL (0.0-1.1); MONO % 12 % (0-9); NEUT % 76 % (31-73); PLATELET COUNT 125 x10^3/uL (140-400); RED BLOOD COUNT 3.19 x10^6/uL (3.50-5.40); RED CELL DISTRIBUTION WIDTH 15.2 % (11.5-14.5); WHITE BLOOD COUNT 2.6 x10^3/uL (4.0-11.0)
[2020-06-24 08:52] LABS: CREATININE 0.8 mg/dL (0.6-1.0); GFR 68.3; POTASSIUM 4.4 mmol/L (3.5-5.1)
[2020-06-24 08:56] LABS: ALBUMIN 3.3 g/dL (3.4-5.0); ALBUMIN/GLOBULIN RATIO 0.9 (1.0-1.7); TOTAL BILIRUBIN 0.3 mg/dL (0.2-1.0)
== END | disposition home or self-care (01) ==
LOC: ONCLAB 08:09
PROVIDERS: ATTEND Physician Assistant
DX: C51.8 Malignant neoplasm of overlapping sites of vulva (principal)
CPT/HCPCS: 36415; 80053; 85025

== ENCOUNTER → 2020-06-25 | Outpatient (CLI) | payer MEDICARE ==
[2020-04-26 12:48] VITALS: BP 122/57
--- NOTE | 2020-06-25 18:58 | RAD ---
EXAMINATION: PET W CT SKULL TO MIDTHIGH HISTORY: Restaging vulvar cancer COMPARISON/CORRELATION: PET/CT exam 04/12/2020 FINDINGS: Net dose 14.85 mCi F-18 FDG was administered intravenously for purposes of PET/CT exam. Blood glucose level at the time of radiotracer administration was 105 mg/dL. Imaging was performed from the skull base to the proximal thighs. Hepatic reference uptake is SUV max of 2 . Uptake of radiotracer involving the visualized head and neck is normal. At the medial right lung base, there is a 3 cm x 1.6 cm soft tissue density with SUV max of 2.0. This mass is overall decreased when compared to the prior exam. Mosaic attenuation of the lung shay evident. No new pulmonary nodules. Marked coronary arterial calcifications present. Right-sided infusion port with catheter tip in the right superior cavoatrial junction noted. Mitral annular calcification present. Punctate nodules previously described lung apices do not have a definite corresponding finding on the current exam. No suspicious lung apical nodules. Uptake of radiotracer involving the liver is normal. Uptake involving a retroperitoneal lymph node at the lower right renal pole level measuring 0.8 cm x 1.4 cm present with SUV max of 4.7. This lymph node is similar upon correlation with the previous exam. It is seen on axial image 235. An additional lymph node with SUV max of 4.7 is present posterior to the inferior aspect of the inferior vena cava and this measures 1.7 cm x 1.3 cm and is new since prior exam. Additional enlarged lymph node is present along the right iliac chain on axial image 273 and this has increased since previous exam currently measuring up to 1.3 cm in maximum diameter. SUV max of 5.2 is present. Previously described large pelvic lymph node along the sidewall inferiorly has markedly reduced in size with SUV max of 3.4. This mass is not as well delineated due to significant decrease in size and apparent enlargement of the right low pelvic sidewall musculature. It may measure 1.5 cm x 0.7 cm on axial image 299. Mild uptake involving the lower left pelvic region probably corresponds to the rectal wall with SUV max of 3.2 and is nonspecific. No suspicious uptake involving the vulvar region soft tissues. IMPRESSION: Marked decrease uptake and decrease in size of the patient's right lung base mass. Marked decrease in right low pelvic sidewall mass. There are 2 new enlarged lower abdominal and upper pelvic level retroperitoneal lymph nodes with intense uptake compatible with metastatic involvement in the interval. Additional lymph node at the retroperitoneum more superiorly at the right renal lower pole level is similar to previous exam. PQRS Compliance Statement: One or more of the following individualized dose reduction techniques were utilized for this examination: 1. Automated exposure control 2. Adjustment of the mA and/or kV according to patient size 3. Use of iterative reconstruction technique Electronically signed by: Wally Martin MD (06/25/2020 6:54 PM) [facility]
== END | disposition home or self-care (01) ==
LOC: PETSC 10:15
PROVIDERS: ATTEND Physician Assistant
DX: C51.9 Malignant neoplasm of vulva, unspecified (principal); R91.8 Other nonspecific abnormal finding of lung field
CPT/HCPCS: 78815; A9552

== ENCOUNTER → 2020-07-01 | Outpatient (CLI) | payer MEDICARE, OTHER ==
[2020-04-26 12:48] VITALS: BP 122/57
[2020-07-01 09:30] LABS: BASO % 0 % (0-3); EOS % 1 % (0-3); HEMATOCRIT 30.4 % (36.0-47.0); HEMOGLOBIN 10.5 g/dL (12.0-15.5); LYMPH # 0.3 x10^3/uL (1.0-4.8); LYMPH % 9 % (24-48); MEAN CORPUSCULAR HEMOGLOBIN 35 pg (25-35); MEAN CORPUSCULAR HGB CONC 35 g/dL (31-37); MEAN CORPUSCULAR VOLUME 101 fL (79-100); MONO # 0.3 x10^3/uL (0.0-1.1); MONO % 11 % (0-9); NEUT # 2.4 x10^3/uL (1.8-7.7); NEUT % 79 % (31-73); PLATELET COUNT 133 x10^3/uL (140-400); RED BLOOD COUNT 3.01 x10^6/uL (3.50-5.40); RED CELL DISTRIBUTION WIDTH 15.8 % (11.5-14.5)
[2020-07-01 09:50] LABS: CALCIUM 9.2 mg/dL (8.5-10.1); CREATININE 0.8 mg/dL (0.6-1.0); GFR 68.3; POTASSIUM 4.1 mmol/L (3.5-5.1)
[2020-07-01 09:58] LABS: ALBUMIN 3.5 g/dL (3.4-5.0); ALBUMIN/GLOBULIN RATIO 0.9 (1.0-1.7); TOTAL BILIRUBIN 0.5 mg/dL (0.2-1.0); TOTAL PROTEIN 7.2 g/dL (6.4-8.2)
== END ==
LOC: ONCLAB 08:00
PROVIDERS: ATTEND Internal Medicine Hematology & Oncology
DX: C51.8 Malignant neoplasm of overlapping sites of vulva (principal)
CPT/HCPCS: 36415; 80053; 83735; 85025

== ENCOUNTER → 2020-07-08 | Outpatient (CLI) | payer MEDICARE, OTHER ==
[2020-04-26 12:48] VITALS: BP 122/57
[2020-07-08 08:53] LABS: BASO % 0 % (0-3); EOS % 1 % (0-3); HEMATOCRIT 31.4 % (36.0-47.0); HEMOGLOBIN 10.7 g/dL (12.0-15.5); LYMPH # 0.3 x10^3/uL (1.0-4.8); LYMPH % 12 % (24-48); MEAN CORPUSCULAR HEMOGLOBIN 35 pg (25-35); MEAN CORPUSCULAR HGB CONC 34 g/dL (31-37); MEAN CORPUSCULAR VOLUME 101 fL (79-100); MONO # 0.4 x10^3/uL (0.0-1.1); MONO % 14 % (0-9); NEUT % 73 % (31-73); PLATELET COUNT 155 x10^3/uL (140-400); WHITE BLOOD COUNT 2.7 x10^3/uL (4.0-11.0)
[2020-07-08 09:12] LABS: CALCIUM 9.2 mg/dL (8.5-10.1); CREATININE 0.7 mg/dL (0.6-1.0); GFR 79.7; POTASSIUM 4.4 mmol/L (3.5-5.1)
[2020-07-08 09:18] LABS: ALBUMIN 3.3 g/dL (3.4-5.0); ALBUMIN/GLOBULIN RATIO 0.9 (1.0-1.7); TOTAL BILIRUBIN 0.3 mg/dL (0.2-1.0); TOTAL PROTEIN 6.8 g/dL (6.4-8.2)
[2020-07-08 11:28] LABS: % BANDS 1 % (0-9); % EOS 3 % (0-5); % LYMPHS 7 % (24-48); % MONOS 9 % (0-10); % SEGS 80 % (35-66); PLT ESTIMATE ADEQUATE (ADEQUATE)
== END ==
LOC: ONCLAB 08:16
PROVIDERS: ATTEND Internal Medicine Hematology & Oncology
DX: C51.8 Malignant neoplasm of overlapping sites of vulva (principal)
CPT/HCPCS: 36415; 80053; 85007; 85025

== ENCOUNTER → 2020-07-29 | Outpatient (CLI) | payer MEDICARE, OTHER ==
[2020-04-26 12:48] VITALS: BP 122/57
[2020-07-29 08:52] LABS: BASO % 0 % (0-3); EOS # 0.1 x10^3/uL (0.0-0.7); EOS % 3 % (0-3); HEMOGLOBIN 10.5 g/dL (12.0-15.5); LYMPH # 0.2 x10^3/uL (1.0-4.8); LYMPH % 7 % (24-48); MEAN CORPUSCULAR HEMOGLOBIN 34 pg (25-35); MEAN CORPUSCULAR HGB CONC 34 g/dL (31-37); MEAN CORPUSCULAR VOLUME 100 fL (79-100); MONO # 0.5 x10^3/uL (0.0-1.1); MONO % 13 % (0-9); NEUT # 2.7 x10^3/uL (1.8-7.7); NEUT % 76 % (31-73); PLATELET COUNT 133 x10^3/uL (140-400); RED BLOOD COUNT 3.11 x10^6/uL (3.50-5.40); RED CELL DISTRIBUTION WIDTH 15.8 % (11.5-14.5); WHITE BLOOD COUNT 3.5 x10^3/uL (4.0-11.0)
[2020-07-29 10:09] LABS: CALCIUM 9.4 mg/dL (8.5-10.1); CREATININE 0.8 mg/dL (0.6-1.0); GFR 68.3; POTASSIUM 3.9 mmol/L (3.5-5.1)
[2020-07-29 10:15] LABS: ALBUMIN 3.2 g/dL (3.4-5.0); ALBUMIN/GLOBULIN RATIO 0.9 (1.0-1.7); TOTAL BILIRUBIN 0.3 mg/dL (0.2-1.0); TOTAL PROTEIN 6.7 g/dL (6.4-8.2)
== END ==
LOC: ONCLAB 08:35
PROVIDERS: ATTEND Internal Medicine Hematology & Oncology
DX: C51.8 Malignant neoplasm of overlapping sites of vulva (principal); C78.01 Secondary malignant neoplasm of right lung; R94.6 Abnormal results of thyroid function studies
CPT/HCPCS: 36415; 80053; 84443; 85025

== ENCOUNTER → 2020-08-23 | Outpatient (CLI) | payer MEDICARE, OTHER ==
[2020-04-26 12:48] VITALS: BP 122/57
[2020-08-23 09:40] LABS: BASO % 0 % (0-3); EOS # 0.1 x10^3/uL (0.0-0.7); EOS % 3 % (0-3); HEMATOCRIT 32.1 % (36.0-47.0); HEMOGLOBIN 10.8 g/dL (12.0-15.5); LYMPH # 0.3 x10^3/uL (1.0-4.8); LYMPH % 8 % (24-48); MEAN CORPUSCULAR HEMOGLOBIN 34 pg (25-35); MEAN CORPUSCULAR HGB CONC 34 g/dL (31-37); MEAN CORPUSCULAR VOLUME 99 fL (79-100); MONO # 0.5 x10^3/uL (0.0-1.1); MONO % 13 % (0-9); NEUT # 2.8 x10^3/uL (1.8-7.7); NEUT % 75 % (31-73); PLATELET COUNT 153 x10^3/uL (140-400); RED BLOOD COUNT 3.23 x10^6/uL (3.50-5.40); RED CELL DISTRIBUTION WIDTH 15.6 % (11.5-14.5); WHITE BLOOD COUNT 3.8 x10^3/uL (4.0-11.0)
[2020-08-23 09:57] LABS: CALCIUM 9.1 mg/dL (8.5-10.1); CREATININE 0.9 mg/dL (0.6-1.0); GFR 59.7; POTASSIUM 4.4 mmol/L (3.5-5.1)
[2020-08-23 10:04] LABS: ALBUMIN 3.2 g/dL (3.4-5.0); ALBUMIN/GLOBULIN RATIO 0.9 (1.0-1.7); TOTAL BILIRUBIN 0.4 mg/dL (0.2-1.0); TOTAL PROTEIN 6.6 g/dL (6.4-8.2)
[2020-08-23 12:59] LABS: % BANDS 1 % (0-9); % EOS 4 % (0-5); % LYMPHS 9 % (24-48); % MONOS 8 % (0-10); % SEGS 78 % (35-66); PLT ESTIMATE ADEQUATE (ADEQUATE)
[2020-08-23 13:01] LABS: ANISOCYTOSIS MOD
== END ==
LOC: ONCLAB 09:23
PROVIDERS: ATTEND Internal Medicine Hematology & Oncology
DX: C78.01 Secondary malignant neoplasm of right lung (principal)
CPT/HCPCS: 36415; 80053; 85007; 85025

== ENCOUNTER → 2020-09-13 | Outpatient (CLI) | payer MEDICARE, OTHER ==
[2020-04-26 12:48] VITALS: BP 122/57
[2020-09-13 10:02] LABS: BASO % 0 % (0-3); EOS # 0.1 x10^3/uL (0.0-0.7); EOS % 3 % (0-3); HEMATOCRIT 34.3 % (36.0-47.0); HEMOGLOBIN 11.4 g/dL (12.0-15.5); LYMPH # 0.3 x10^3/uL (1.0-4.8); LYMPH % 6 % (24-48); MEAN CORPUSCULAR HEMOGLOBIN 33 pg (25-35); MEAN CORPUSCULAR HGB CONC 33 g/dL (31-37); MEAN CORPUSCULAR VOLUME 98 fL (79-100); MONO # 0.5 x10^3/uL (0.0-1.1); MONO % 12 % (0-9); NEUT # 3.7 x10^3/uL (1.8-7.7); NEUT % 79 % (31-73); PLATELET COUNT 192 x10^3/uL (140-400); RED BLOOD COUNT 3.49 x10^6/uL (3.50-5.40); RED CELL DISTRIBUTION WIDTH 15.6 % (11.5-14.5); WHITE BLOOD COUNT 4.7 x10^3/uL (4.0-11.0)
[2020-09-13 10:12] LABS: CALCIUM 8.9 mg/dL (8.5-10.1); GFR 52.8; POTASSIUM 4.1 mmol/L (3.5-5.1)
[2020-09-13 10:17] LABS: ALBUMIN 3.4 g/dL (3.4-5.0); ALBUMIN/GLOBULIN RATIO 0.9 (1.0-1.7); TOTAL BILIRUBIN 0.4 mg/dL (0.2-1.0); TOTAL PROTEIN 7.2 g/dL (6.4-8.2)
[2020-09-13 10:49] LABS: % EOS 9 % (0-5); % LYMPHS 9 % (24-48); % MONOS 8 % (0-10); % SEGS 74 % (35-66); PLT ESTIMATE ADEQUATE (ADEQUATE)
== END ==
LOC: ONCLAB 08:05
PROVIDERS: ATTEND Internal Medicine Hematology & Oncology
DX: C78.01 Secondary malignant neoplasm of right lung (principal); I10 Essential (primary) hypertension
CPT/HCPCS: 36415; 80053; 84443; 85007; 85025

== ENCOUNTER → 2020-10-04 | Outpatient (CLI) | payer MEDICARE, OTHER ==
[2020-04-26 12:48] VITALS: BP 122/57
[2020-10-04 09:57] LABS: BASO % 1 % (0-3); EOS # 0.1 x10^3/uL (0.0-0.7); EOS % 2 % (0-3); HEMATOCRIT 35.3 % (36.0-47.0); HEMOGLOBIN 11.7 g/dL (12.0-15.5); LYMPH # 0.3 x10^3/uL (1.0-4.8); LYMPH % 6 % (24-48); MEAN CORPUSCULAR HEMOGLOBIN 32 pg (25-35); MEAN CORPUSCULAR HGB CONC 33 g/dL (31-37); MEAN CORPUSCULAR VOLUME 98 fL (79-100); MONO # 0.4 x10^3/uL (0.0-1.1); MONO % 9 % (0-9); NEUT % 82 % (31-73); PLATELET COUNT 192 x10^3/uL (140-400); RED BLOOD COUNT 3.62 x10^6/uL (3.50-5.40); WHITE BLOOD COUNT 4.9 x10^3/uL (4.0-11.0)
[2020-10-04 10:06] LABS: GFR 52.8; POTASSIUM 4.2 mmol/L (3.5-5.1)
[2020-10-04 10:13] LABS: ALBUMIN 3.4 g/dL (3.4-5.0); ALBUMIN/GLOBULIN RATIO 0.9 (1.0-1.7); TOTAL BILIRUBIN 0.4 mg/dL (0.2-1.0); TOTAL PROTEIN 7.2 g/dL (6.4-8.2)
[2020-10-04 12:49] LABS: % BANDS 6 % (0-9); % LYMPHS 7 % (24-48); % MONOS 3 % (0-10); % SEGS 84 % (35-66); PLT ESTIMATE ADEQUATE (ADEQUATE)
== END ==
LOC: ONCLAB 09:22
PROVIDERS: ATTEND Internal Medicine Hematology & Oncology
DX: C77.4 Secondary and unspecified malignant neoplasm of inguinal and lower limb lymph nodes (principal)
CPT/HCPCS: 36415; 80053; 85007; 85025

== ENCOUNTER → 2020-10-08 | Outpatient (CLI) | payer MEDICARE, OTHER ==
[2020-04-26 12:48] VITALS: BP 122/57
--- NOTE | 2020-10-08 18:06 | RAD ---
EXAM: NM PET/CT SKULL BASE TO MID THIGH EXAM DATE: 10/08/2020 INDICATION: Vulvar cancer restaging RADIOPHARMACEUTICAL: 13.7 mCi of F-18 Fluorodeoxyglucose (FDG) I.V. via the left antecubital fossa. TECHNIQUE: Patient weight: 125 pounds. Following at least four-hour fasting, the patient's blood gluc ose was 115 mg/dl. Approximately 1 hour after administration of FDG, overlapping emission scanning w as performed from the orbital meatal line through the pelvis. A low-dose CT was performed for attenu ation correction purposes and anatomic localization. Fused images of PET and CT were reviewed. Any s tandardized uptake values (SUV) reported are maximum values within a volume region of interest, expre ssed in gm/ml. COMPARISON: PET CT of 06/25/2020 FINDINGS: PET: In the head and neck, there has been interval increase in size and FDG activity in a right level 4 ce rvical node, now measuring 0.7 x 1.2 cm AP by transverse on axial image 75 of series 3 with a max SUV of 3.53, compared with 0.4 x 0.6 mm and max SUV of 1.63 (image 78 of series 3 on the prior study). In the chest, mild FDG activity in the mediastinum is present with a right lower paratracheal lymph n ode showing FDG uptake to max SUV of 3.34. On close retrospective review, this is not significantly c hanged from prior FDG uptake of 3.19 Max SUV. The medial segment right lower lobe lung mass shows FDG uptake to max SUV of 3.85, compared with prio r reported activity of 2.0 Max SUV. There are new pulmonary parenchymal infiltrates surrounding this mass, obscuring its margins. No new pulmonary nodules or masses are otherwise apparent. Mediastinum shows diffuse wall thickening in the thoracic esophagus with a possible sliding hiatal he rnia. Along the dorsal aspect of the lower thoracic esophagus is noted focally increased FDG activity in linear fashion to max SUV of 4.14. This is similar to prior. In the abdomen, the retroperitoneal lymph nodes dorsal to the IVC at the approximate level of the lef t renal vessels show marked interval decrease in abnormal FDG activity, from a peak SUV of 4.7 to cur rent max SUV of 2.08. In the pelvis, right-sided external iliac lymph nodes show interval increase in size and abnormal FDG uptake. The lateral external iliac nodes now measure up to 1.3 cm in short axis diameter (image 291 of series 3) compared with 8 mm previously (image 293 series 3 prior exam) and have FDG uptake to max SUV of 5.91, compared with 5.2 previously. The medial external iliac nodes shows increase in size to 1.3 cm (images 115 of series 603 and 290 of series 3), compared with 9 mm previously and show max TROY V of 6.66, compared with 3.[address]: Head and neck shows no significant incidental finding on noncontrast CT. Chest shows jugular approach tunneled chest port remains present with the tip in the right atrium. As ymmetric enlargement of the left ventricular chamber with dense mitral annulus calcifications and aor tic valvular calcifications are present. Multivessel coronary calcifications. Abdomen and pelvis show a left parapelvic renal cyst and mild stranding in the suprapubic subcutaneou s soft tissues. The left hip arthroplasty creates streak artifact that limits detail. There are sever e right hip degenerative changes and scoliosis of the lumbar spine. Uterus is surgically absent. IMPRESSION: Mixed response to therapy with decrease in retroperitoneal lymph nodes of the level of the right kidn ey in size and FDG activity but subtle increase in activity in the right lower neck (level 4) lymph n ode and in right sided external iliac lymph nodes, as well as in the right lower lobe lung mass. Some of this could be treatment related. Reassessment on follow-up could be helpful. Electronically signed by: Mark Morales MD (10/08/2020 6:04 PM) [id number]
== END ==
LOC: PETSC 11:48
PROVIDERS: ATTEND Internal Medicine Hematology & Oncology
DX: C51.8 Malignant neoplasm of overlapping sites of vulva (principal); R91.1 Solitary pulmonary nodule; I25.10 Atherosclerotic heart disease of native coronary artery without angina pectoris; N28.1 Cyst of kidney, acquired
CPT/HCPCS: 78815; A9552

== ENCOUNTER → 2020-10-27 | Outpatient (CLI) | payer MEDICARE, OTHER ==
[2020-04-26 12:48] VITALS: BP 122/57
[~2020-10-27] MED LIST changes: +APIX5TAB PO; +CHOL5000 PO; -CHOL500051 PO; +LEVO25TA4 PO
[2020-10-27 09:51] LABS: BASO % 1 % (0-3); EOS # 0.1 x10^3/uL (0.0-0.7); EOS % 2 % (0-3); HEMATOCRIT 35.1 % (36.0-47.0); HEMOGLOBIN 12.4 g/dL (12.0-15.5); LYMPH # 0.3 x10^3/uL (1.0-4.8); LYMPH % 6 % (24-48); MEAN CORPUSCULAR HEMOGLOBIN 34 pg (25-35); MEAN CORPUSCULAR HGB CONC 35 g/dL (31-37); MEAN CORPUSCULAR VOLUME 98 fL (79-100); MONO # 0.4 x10^3/uL (0.0-1.1); MONO % 8 % (0-9); NEUT % 83 % (31-73); PLATELET COUNT 176 x10^3/uL (140-400); RED CELL DISTRIBUTION WIDTH 16.6 % (11.5-14.5); WHITE BLOOD COUNT 4.8 x10^3/uL (4.0-11.0)
[2020-10-27 10:01] LABS: CALCIUM 9.2 mg/dL (8.5-10.1); CREATININE 1.2 mg/dL (0.6-1.0); GFR 42.8; POTASSIUM 3.7 mmol/L (3.5-5.1)
[2020-10-27 10:06] LABS: ALBUMIN 3.5 g/dL (3.4-5.0); ALBUMIN/GLOBULIN RATIO 0.9 (1.0-1.7); TOTAL BILIRUBIN 0.5 mg/dL (0.2-1.0); TOTAL PROTEIN 7.4 g/dL (6.4-8.2)
[2020-10-27 11:47] LABS: % BANDS 2 % (0-9); % LYMPHS 3 % (24-48); % MONOS 1 % (0-10); % SEGS 94 % (35-66); PLT ESTIMATE ADEQUATE (ADEQUATE)
== END ==
LOC: ONCLAB 08:28
PROVIDERS: ATTEND Internal Medicine Hematology & Oncology
DX: C77.4 Secondary and unspecified malignant neoplasm of inguinal and lower limb lymph nodes (principal)
CPT/HCPCS: 36415; 80053; 85007; 85025

== ENCOUNTER → 2020-11-17 | Outpatient (CLI) | payer MEDICARE, OTHER ==
[2020-04-26 12:48] VITALS: BP 122/57
[~2020-11-17] MED LIST changes: -APIX5TAB PO; -CHOL5000 PO; +CHOL500051 PO; -LEVO25TA4 PO
[2020-11-17 09:58] LABS: BASO % 0 % (0-3); EOS % 0 % (0-3); HEMATOCRIT 30.6 % (36.0-47.0); HEMOGLOBIN 10.5 g/dL (12.0-15.5); LYMPH # 0.3 x10^3/uL (1.0-4.8); LYMPH % 4 % (24-48); MEAN CORPUSCULAR HEMOGLOBIN 34 pg (25-35); MEAN CORPUSCULAR HGB CONC 34 g/dL (31-37); MEAN CORPUSCULAR VOLUME 98 fL (79-100); MONO # 0.6 x10^3/uL (0.0-1.1); MONO % 8 % (0-9); NEUT # 6.4 x10^3/uL (1.8-7.7); NEUT % 87 % (31-73); PLATELET COUNT 161 x10^3/uL (140-400); RED BLOOD COUNT 3.12 x10^6/uL (3.50-5.40); RED CELL DISTRIBUTION WIDTH 17.6 % (11.5-14.5); WHITE BLOOD COUNT 7.3 x10^3/uL (4.0-11.0)
[2020-11-17 10:07] LABS: CALCIUM 8.9 mg/dL (8.5-10.1); CREATININE 1.1 mg/dL (0.6-1.0); GFR 47.3; POTASSIUM 3.8 mmol/L (3.5-5.1)
[2020-11-17 10:12] LABS: ALBUMIN 3.3 g/dL (3.4-5.0); ALBUMIN/GLOBULIN RATIO 0.8 (1.0-1.7); TOTAL BILIRUBIN 0.9 mg/dL (0.2-1.0); TOTAL PROTEIN 7.3 g/dL (6.4-8.2)
[2020-11-17 12:13] LABS: % BANDS 3 % (0-9); % EOS 1 % (0-5); % LYMPHS 10 % (24-48); % MONOS 5 % (0-10); % SEGS 81 % (35-66); PLT ESTIMATE ADEQUATE (ADEQUATE)
== END ==
LOC: ONCLAB 09:38
PROVIDERS: ATTEND Internal Medicine Hematology & Oncology
DX: C78.01 Secondary malignant neoplasm of right lung (principal); C77.4 Secondary and unspecified malignant neoplasm of inguinal and lower limb lymph nodes; E03.2 Hypothyroidism due to medicaments and other exogenous substances
CPT/HCPCS: 36415; 80053; 84443; 85007; 85025

== ENCOUNTER → 2020-12-08 | Outpatient (CLI) | payer MEDICARE, OTHER ==
[2020-04-26 12:48] VITALS: BP 122/57
[2020-12-08 10:33] LABS: CALCIUM 8.8 mg/dL (8.5-10.1); CREATININE 0.8 mg/dL (0.6-1.0); GFR 68.3; POTASSIUM 4.1 mmol/L (3.5-5.1)
[2020-12-08 10:37] LABS: BASO % 0 % (0-3); EOS % 1 % (0-3); HEMOGLOBIN 9.9 g/dL (12.0-15.5); LYMPH # 0.4 x10^3/uL (1.0-4.8); LYMPH % 9 % (24-48); MEAN CORPUSCULAR HEMOGLOBIN 34 pg (25-35); MEAN CORPUSCULAR HGB CONC 34 g/dL (31-37); MEAN CORPUSCULAR VOLUME 99 fL (79-100); MONO # 0.4 x10^3/uL (0.0-1.1); MONO % 10 % (0-9); NEUT # 3.3 x10^3/uL (1.8-7.7); NEUT % 80 % (31-73); PLATELET COUNT 150 x10^3/uL (140-400); RED BLOOD COUNT 2.94 x10^6/uL (3.50-5.40); RED CELL DISTRIBUTION WIDTH 17.7 % (11.5-14.5); WHITE BLOOD COUNT 4.1 x10^3/uL (4.0-11.0)
[2020-12-08 10:40] LABS: ALBUMIN 3.5 g/dL (3.4-5.0); ALBUMIN/GLOBULIN RATIO 0.9 (1.0-1.7); TOTAL BILIRUBIN 0.6 mg/dL (0.2-1.0); TOTAL PROTEIN 7.4 g/dL (6.4-8.2)
== END ==
LOC: ONCLAB 09:44
PROVIDERS: ATTEND Internal Medicine Hematology & Oncology
DX: C78.01 Secondary malignant neoplasm of right lung (principal)
CPT/HCPCS: 36415; 80053; 85025

== ENCOUNTER → 2020-12-08 | Outpatient (CLI) | payer MEDICARE, OTHER ==
[2020-04-26 12:48] VITALS: BP 122/57
--- NOTE | 2020-12-08 13:11 | RAD ---
INDICATION: Reason: b/l leg swelling / Spl. Instructions: / History: COMPARISON: February 2020 TECHNIQUE: Grayscale, color and doppler ultrasound images were obtained of the bilateral lower extrem ity venous vasculature. RIGHT: No thrombus identified in the common femoral vein, femoral vein, popliteal vein or visualized calf ve ins. LEFT: No thrombus identified in the common femoral vein, femoral vein, popliteal vein or visualized calf ve ins. IMPRESSION: * No thrombus identified in deep venous system of bilateral lower extremities. * 68 x 26 x 14 mm fluid collection in the left popliteal fossa. Most common cause would be Rea's c yst. Electronically signed by: Kali Perea MD (12/08/2020 1:08 PM) [id number]
== END ==
LOC: US 12:15
PROVIDERS: ATTEND Internal Medicine Hematology & Oncology
DX: C78.01 Secondary malignant neoplasm of right lung (principal); M79.604 Pain in right leg; M79.605 Pain in left leg; M79.89 Other specified soft tissue disorders
CPT/HCPCS: 93970

== ENCOUNTER → 2020-12-29 | Outpatient (CLI) | payer MEDICARE, OTHER ==
[2020-04-26 12:48] VITALS: BP 122/57
[2020-12-29 10:22] LABS: BASO % 0 % (0-3); EOS % 1 % (0-3); HEMATOCRIT 28.7 % (36.0-47.0); HEMOGLOBIN 9.6 g/dL (12.0-15.5); LYMPH # 0.3 x10^3/uL (1.0-4.8); LYMPH % 6 % (24-48); MEAN CORPUSCULAR HEMOGLOBIN 34 pg (25-35); MEAN CORPUSCULAR HGB CONC 34 g/dL (31-37); MEAN CORPUSCULAR VOLUME 100 fL (79-100); MONO # 0.4 x10^3/uL (0.0-1.1); MONO % 10 % (0-9); NEUT # 3.4 x10^3/uL (1.8-7.7); NEUT % 82 % (31-73); PLATELET COUNT 177 x10^3/uL (140-400); RED BLOOD COUNT 2.86 x10^6/uL (3.50-5.40); RED CELL DISTRIBUTION WIDTH 17.1 % (11.5-14.5); WHITE BLOOD COUNT 4.1 x10^3/uL (4.0-11.0)
[2020-12-29 10:27] LABS: CREATININE 0.8 mg/dL (0.6-1.0); GFR 68.3; POTASSIUM 4.1 mmol/L (3.5-5.1)
[2020-12-29 10:33] LABS: ALBUMIN 3.3 g/dL (3.4-5.0); ALBUMIN/GLOBULIN RATIO 0.8 (1.0-1.7); TOTAL BILIRUBIN 0.5 mg/dL (0.2-1.0); TOTAL PROTEIN 7.2 g/dL (6.4-8.2)
[2020-12-29 12:10] LABS: % BANDS 8 % (0-9); % EOS 1 % (0-5); % LYMPHS 2 % (24-48); % MONOS 3 % (0-10); % MYELOS 1 % (0-0); % SEGS 85 % (35-66); PLT ESTIMATE ADEQUATE (ADEQUATE)
== END ==
LOC: ONCLAB 09:52
PROVIDERS: ATTEND Internal Medicine Hematology & Oncology
DX: C77.4 Secondary and unspecified malignant neoplasm of inguinal and lower limb lymph nodes (principal); E03.2 Hypothyroidism due to medicaments and other exogenous substances; T50.905A Adverse effect of unspecified drugs, medicaments and biological substances, initial encounter; Y92.89 Other specified places as the place of occurrence of the external cause
CPT/HCPCS: 36415; 80053; 84443; 85007; 85025

== ENCOUNTER → 2021-01-05 | Outpatient (CLI) | payer MEDICARE, OTHER ==
[2020-04-26 12:48] VITALS: BP 122/57
[2021-01-05 10:23] LABS: CALCIUM 9.2 mg/dL (8.5-10.1); CREATININE 0.9 mg/dL (0.6-1.0); GFR 59.7; POTASSIUM 4.1 mmol/L (3.5-5.1)
[2021-01-05 10:29] LABS: BASO % 0 % (0-3); EOS % 1 % (0-3); HEMATOCRIT 29.6 % (36.0-47.0); LYMPH # 0.2 x10^3/uL (1.0-4.8); LYMPH % 5 % (24-48); MEAN CORPUSCULAR HEMOGLOBIN 34 pg (25-35); MEAN CORPUSCULAR HGB CONC 34 g/dL (31-37); MEAN CORPUSCULAR VOLUME 100 fL (79-100); MONO # 0.5 x10^3/uL (0.0-1.1); MONO % 11 % (0-9); NEUT # 3.7 x10^3/uL (1.8-7.7); NEUT % 83 % (31-73); PLATELET COUNT 200 x10^3/uL (140-400); RED BLOOD COUNT 2.98 x10^6/uL (3.50-5.40); RED CELL DISTRIBUTION WIDTH 16.1 % (11.5-14.5); WHITE BLOOD COUNT 4.5 x10^3/uL (4.0-11.0)
== END ==
LOC: ONCLAB 09:45
PROVIDERS: ATTEND Physician Assistant
DX: C77.4 Secondary and unspecified malignant neoplasm of inguinal and lower limb lymph nodes (principal)
CPT/HCPCS: 36415; 80048; 85025

== ENCOUNTER → 2021-01-07 | Outpatient (CLI) | payer MEDICARE, OTHER ==
[2020-04-26 12:48] VITALS: BP 122/57
[~2021-01-07] MED LIST changes: +APIX5TAB PO; +LEVO25TA4 PO
--- NOTE | 2021-01-07 15:33 | RAD ---
EXAM: PET/CT SCAN INDICATION: Vulva cancer restaging COMPARISON: PET/CT 10/08/2020 PET/CT SCAN TECHNIQUE: Approximately 60 minutes after the intravenous administration of 13.1millicuri es of F-18 fluorodeoxyglucose (FDG), PET imaging of the body from the base of the skull through the m id thighs was performed. Reconstruction in all 3 planes were performed. The patient's serum glucose l evel at the time of the F-18 FDG administration was 1:15 mg/dL. A noncontrast CT scan was obtained fo r attenuation correction and anatomic localization purposes only and is not considered a diagnostic C T scan. PQRS compliance Statement One or more of the following individualized dose reduction techniques were utilized for this study: 1. Automated exposure control 2. Adjustment of the mA and/or kV according to patient size 3. Use of iterative reconstruction technique FINDINGS: Background: Mediastinum SUV max: 2.03 Liver SUV max: 2.40 HEAD AND NECK: A lymph node posterior to the right thyroid lobe with SUV max 2.4 now measures 0.8 x 0 .9 cm, previously 0.8 x 0.7 cm. Mild FDG uptake in the left thyroid lobe has SUV max 2.6. No new abno rmal FDG uptake or lymphadenopathy. CHEST: Multiple metabolically active lymph nodes have increased in size and at least one has increased SUV m ax: A high right paratracheal lymph node has SUV max 3.51, previously 3.02. It now measures 1.2 x 0.7 cm, previously 0.3 x 0.1 cm. A low right paratracheal lymph node has SUV max 2.82, previously 3.34. Measures 2.5 x 1.5 cm, previou sly 2.4 x 1.3 cm. An AP window lymph has SUV max 6.8, previously 3.31. It now measures 1.9 x 1.7 cm, previously 0.6 x 0 .3 cm. Opacities in the medial right lower lobe have SUV max 4.79, previously 3.84 and are now more confluen t and masslike, measuring 4.7 x 4.0 cm. Previously, the more solid/complex component measured 1.9 x 2 .8 cm. No pleural effusion. Heart is normal in size. There coronary artery mitral annulus calcificati ons. Small hiatal hernia. ABDOMEN AND PELVIS: Multiple metabolically active retroperitoneal lymph nodes have increased in size and most have increa sed SUV max: An aortocaval lymph node just below the level of the left renal vein has SUV 2.64 max, previously 4.2 1. It now measures 2.2 x 2.3 cm, previously 1.4 x 1.3 cm. This causes mild mass effect on the inferio r vena cava. An ill-defined proximal right common iliac chain lymph node has SUV max 6.97, previously 4.56. This i s difficult to discretely measure. Right external iliac chain lymph node has SUV max 7.34, previously 5.91. It now measures 3.1 x 2.3 cm , previously 1.7 x 1.2 cm. Right internal iliac chain/pelvic sidewall lymph nodes have SUV max 8.69, previously 6.66. It now al sures 2.8 x 2.3 cm, previously 1.7 x 1.6 cm. Right retroperitoneal lymph node abutting the L5 vertebral body has SUV max 5.58, previously 2.94. It now measures 2.2 x 1.8 cm, previously 2.0 x 1.4 cm. Additional mildly enlarged left periaortic lymph nodes with mild FDG uptake. Liver, gallbladder, panc reas, spleen, adrenal glands are normal. There are left peripelvic cysts. Left nephrolithiasis. Evalu ation of the pelvis is limited by streak artifact from a left hip prosthesis. There is unchanged pres acral edema. Bowel is unremarkable. MUSCULOSKELETAL:No abnormal FDG uptake. There is new edema in the right lower extremity. 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 Lumbar degenerative disc disease. IMPRESSION: 1. Overall progression of disease with increase size of lymph nodes in the chest, abdomen, and pelvis . SUV max has mostly increased in lymph nodes in the abdomen and pelvis and increased in an AP window lymph node. 2. Increased size and mildly increased SUV max of masslike consolidation in the right lower lobe. 3. There is new right lower extremity edema. Lymphadenopathy in the abdomen and pelvis extends along the inferior vena cava and common external iliac chains and may cause compression. Recommend CT of th e abdomen and pelvis with contrast to evaluate for underlying deep venous thrombosis. Electronically signed by: Miriam Lion MD (01/07/2021 3:31 PM) [id number]
== END ==
LOC: PETSC 10:03
PROVIDERS: ATTEND Physician Assistant
DX: C51.8 Malignant neoplasm of overlapping sites of vulva (principal); R60.0 Localized edema
CPT/HCPCS: 78815; A9552

== ENCOUNTER 2021-01-13 08:33 | Outpatient (CLI) | payer MEDICARE, OTHER ==
[~2021-01-13] VITALS: Ht 170.2 cm; Wt 59.0 kg
[2021-01-13] VITALS (9 sets, daily range): BP systolic 110–146; BP diastolic 52–83
[~2021-01-13 08:33] MED LIST changes: -APIX5TAB PO; -LEVO25TA4 PO
[2021-01-13] MEDS ORDERED: fentaNYL PF VIAL 100 MCG/2 ML VIAL ONE (09:23)
[2021-01-13] MEDS ORDERED: MIDAZOLAM HCL/PF 2 MG/2 ML VIAL. ONE (09:23)
[2021-01-13] MEDS ORDERED: HEPARIN for IV BOLUS 10,000 UNIT/10 ML VIAL. ONE (09:23)
[2021-01-13 09:24] LABS: BASO % 0 % (0-3); EOS # 0.1 x10^3/uL (0.0-0.7); EOS % 1 % (0-3); HEMATOCRIT 31.3 % (36.0-47.0); HEMOGLOBIN 10.6 g/dL (12.0-15.5); LYMPH # 0.3 x10^3/uL (1.0-4.8); LYMPH % 6 % (24-48); MEAN CORPUSCULAR HEMOGLOBIN 34 pg (25-35); MEAN CORPUSCULAR HGB CONC 34 g/dL (31-37); MEAN CORPUSCULAR VOLUME 99 fL (79-100); MONO # 0.5 x10^3/uL (0.0-1.1); MONO % 11 % (0-9); NEUT # 3.8 x10^3/uL (1.8-7.7); NEUT % 82 % (31-73); PLATELET COUNT 203 x10^3/uL (140-400); RED BLOOD COUNT 3.15 x10^6/uL (3.50-5.40); RED CELL DISTRIBUTION WIDTH 16.3 % (11.5-14.5); WHITE BLOOD COUNT 4.7 x10^3/uL (4.0-11.0)
[2021-01-13 09:26] LABS: CALCIUM 9.4 mg/dL (8.5-10.1); CREATININE 0.8 mg/dL (0.6-1.0); GFR 68.3
[2021-01-13] MEDS ORDERED: LIDOCAINE WITH 8.4% SOD BICARB 3 ML DISP.SYRIN. ONE (09:30)
[2021-01-13] MEDS ORDERED: IOHEXOL 300 MG/ML 100ML VIAL. ONE ×2 (09:30→10:31)
[2021-01-13 09:34] LABS: PROTHROMBIN TIME PATIENT 14.9 SEC (11.7-14.0)
[2021-01-13] MEDS ORDERED: APIX5TAB PO (09:41)
[2021-01-13] MEDS ORDERED: LEVO25TA4 PO (09:41)
[2021-01-13] MEDS ORDERED: IOHEXOL 300 MG/ML 100ML VIAL. IART ONE (10:00)
[2021-01-13] MEDS ORDERED: LIDOCAINE WITH 8.4% SOD BICARB 3 ML DISP.SYRIN. IJ ONE (10:00)
[2021-01-13] MEDS ORDERED: MIDAZOLAM HCL/PF 2 MG/2 ML VIAL. IV ONE (10:00)
[2021-01-13] MEDS ORDERED: fentaNYL PF VIAL 100 MCG/2 ML VIAL IV ONE (10:00)
[2021-01-13 11:07] LABS: % BASOS 1 % (0-3); % EOS 1 % (0-5); % LYMPHS 6 % (24-48); % MONOS 9 % (0-10); % SEGS 83 % (35-66)
[2021-01-13 11:08] LABS: PLT ESTIMATE ADEQUATE (ADEQUATE)
[2021-01-13] MEDS ORDERED: APIXABAN 5 MG TABLET. PO SCH (11:15)
--- NOTE | 2021-01-13 13:16 | NUR ---
Patient's port de-accessed, instructions on site care provided. Patient and her verbalized understanding. Informed to watch site for bleeding, infection. Patient aware of lifting restrictions. Compression stockings given to patient by MD. One set applied, pulses palpable/improved. No questions at time of d/c. All belongings taken with patient at time of d/c.
--- NOTE | 2021-01-14 12:20 | RAD ---
01/14/2021 9:01 AM Procedure: 1. Pelvic venography 2. 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 Discussion of the risks included, but was not limited to, those that are most frequent and those that are rare but possibly severe or life-threatening, as well as the possibility of unforeseen complications. All elements of maximal sterile barrier technique including the use of a cap, mask, sterile gown, sterile gloves, large sterile sheet, appropriate hand hygiene, and 2% chlorhexidine for cutaneous antisepsis (or acceptable alternative antiseptic per current guidelines) were followed for this procedure. The right groin was prepped and draped as described. 1% lidocaine was administered for anesthesia. Ultrasound evaluation, the right common femoral vein to be patent. The right saphenous vein is patent saphenofemoral junction. The common femoral vein was accessed using micropuncture technique and direct ultrasound guidance. Reference ultrasound images were saved the medical record. A 4 Czech sheath was placed. 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 Lesions were traversed. This was confirmed with sonography. A 24 x 70 cm Wallstent was placed extending from the caudad IVC across the region of stenosis in the external iliac vein. This was postdilated using a 10 mm and 14 mm balloons. This resulted in excellent flow and nonvisualization of previously seen collaterals. The sheath was removed. Manual pressure was held. No immediate complications were identified. Total fluoroscopy time: 6.5 min Dose area product: 208 Gycm2 The procedures performed under conscious sedation including continuous cardiopulmonary monitoring via dedicated sedation nurse. 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
== END 2021-01-13 13:17 | disposition home or self-care (01) ==
LOC: INTRAD 08:33
PROVIDERS: ATTEND Internal Medicine Hematology & Oncology
DX: I87.1 Compression of vein (principal); I10 Essential (primary) hypertension; M81.0 Age-related osteoporosis without current pathological fracture; Z85.828 Personal history of other malignant neoplasm of skin; Z79.899 Other long term (current) drug therapy; Z98.890 Other specified postprocedural states
CPT/HCPCS: 36415; 37238; 75820; 80048; 85007; 85025; 85610; 87426; 99152; 99153; C1725; C1769; C1876; C1885; C1892; C1894; J1644; J2250; J3010; J3490; Q9967